=== PATIENT | male | born 1950 | race African-American/Black ===

== ENCOUNTER 2017-07-07 05:40 | Day surgery (SDC) | payer MEDICARE, MEDICAID ==
[2017-07-07 09:14] LABS: #Eosinphils 0.8 thou/uL (0.0-0.7); #Lymphocytes 1.8 thou/uL (1.20-3.40); #Monocytes 0.9 thou/uL (0.11-0.59); #Neutrophils 5.9 thou/uL (1.40-6.50); %Basophils 0.1 % (0.0-1.0); %Eosinophils 8.7 % (0.0-10.0); %Lymphocytes 18.9 % (21.0-51.0); %Monocytes 9.6 % (0.0-10.0); Mean Platelet Volume 9.9 fL (7.4-10.4); Red Blood Cell (RBC) Count 3.62 mill/uL (4.70-6.10); White Blood Cell (WBC) Count 9.5 thou/uL (4.8-10.8)
[2017-07-07 09:21] LABS: PTT 26.8 SEC (22.9-36.1); Prothrombin Time 15.5 SEC (12.0-14.7)
[2017-07-07 09:37] LABS: Anion Gap 10 mmol/L (10-20); BUN (Urea Nitrogen) 12 mg/dL (8.4-25.7); Calc. Creatinine Clearance 0 mL/min (70-130); Calcium 8.9 mg/dL (7.8-10.44); Carbon Dioxide 29 mmol/L (23-31); Chloride 103 mmol/L (98-107); Estimated GFR-MDRD Greater than 90
[2017-07-07] MEDS ORDERED: Fentanyl 100 MCG/2 ML VIAL ONE ×2 (10:16→10:30)
[2017-07-07] MEDS ORDERED: Neomycin-Polymyxin 1 ML AMP ONE (10:28)
[2017-07-07] MEDS ORDERED: Thrombin 5000 UNITS/5 ML VIAL ONE ×2 (10:28→11:18)
[2017-07-07] MEDS ORDERED: Bacitracin Zinc Ointment 30 gm TUBE ONE (10:28)
[2017-07-07] MEDS ORDERED: Lidocaine 1% PF 5 ML VIAL ONE (11:05)
[2017-07-07] MEDS ORDERED: Propofol 200 MG/20 ML VIAL ONE (11:05)
[2017-07-07] MEDS ORDERED: ePHEDrine/0.9% NaCl/PF SYRINGE 50 mg/10 ml ONE (11:05)
[2017-07-07] MEDS ORDERED: Sodium Chloride 0.9% 10 ML ONE (11:18)
--- NOTE | 2017-07-07 13:18 | OP ---
DATE OF PROCEDURE: 07/07/2017 PREOPERATIVE DIAGNOSIS: Right dorsal and palmar hand wounds with Integra, total of 10 x 2 cm with t he sizes combined. POSTOPERATIVE DIAGNOSIS: Right dorsal and palmar hand wounds with Integra, total of 10 x 2 cm with the sizes combined. FINDINGS: A layer of dermis deposited especially on the dorsal tendon to see glistening pinkish to clear without evidence of infection and the previous skin graft showed nearly 100% take around these regions. PROCEDURE PERFORMED: 1. Debridement of wound superficial using the following technique. A. Bethpage blade, tenotomy scissor, hemostat and Adson's. B. Excisional technique. C. Down to, but not violating the fascia and the tendon sheath. D. There is no evidence of infection or necrosis. 2. Split-thickness skin graft harvesting from the thigh coming from lateral right. Using a power d ermatome Ahsan meshed 1:1.5 and thickness 0.20. SURGEON: Roosevelt Love M.D. ANESTHESIA: General LMA technique. INDICATIONS: Staged wound management after 4-1/2 weeks with Integra graft in place and evidence und er the graft of adherence of artificial dermis and skin graft is indicated. DESCRIPTION OF PROCEDURE: He has successful general LMA technique, the limb was prepped and draped. This included the donor site right proximal third thigh. The patient had limb both prepped and dr aped. No tourniquet was applied, we removed all the leo and sutures. The wound was healed at a ll sites previously stapled, sutured and his previous skin grafts have taken without abnormality. W hat was left however, was on the palm side, a radial wound over the distal radius that was approxima tely 4.5 x 2 cm and then on the dorsal side a 5.5 x 2 cm wound on which you could see a glistening l naima from the Integra graft. We harvested the skin graft at the depth 0.2 meshed 1:1.5 and then yola sb thrombin-soaked Gelfoam on the donor site. We then placed this graft and it was adequate enough to cover all the surfaces to include the small 5 mm septal depression of the palmar wound. We then stapled the skin in place, put a bacitracin, Adaptic on this and all the other incisions where the sutures had been removed and then finally bolstered it with 2 mineral oil soaked cotton balls on eit her side. Bulky dressing was applied here along with an Jeremy wrap, and at the donor site the thrombi n-soaked Gelfoam was covered with 4 x 4s, Tegaderm, then 6 inch Jeremy wrap. The patient left the oper ating room without complications.
== END 2017-07-08 14:00 | disposition home or self-care (01) ==
LOC: SDC 05:40
PROVIDERS: ATTEND Orthopaedic Surgery Hand Surgery
PROC: 0HRFX74 Replacement of Right Hand Skin with Autologous Tissue Substitute, Partial Thickness, External Approach (ICD-10-PCS; principal; 2017-07-07)
PROC: 0HBHXZZ Excision of Right Upper Leg Skin, External Approach (ICD-10-PCS; 2017-07-07)
DX: S61.401A Unspecified open wound of right hand, initial encounter (principal); D64.9 Anemia, unspecified; E11.9 Type 2 diabetes mellitus without complications; I10 Essential (primary) hypertension; R53.81 Other malaise; B18.2 Chronic viral hepatitis C; Z79.84 Long term (current) use of oral hypoglycemic drugs; Z79.82 Long term (current) use of aspirin; Z79.899 Other long term (current) drug therapy; Z88.8 Allergy status to other drugs, medicaments and biological substances; Z98.890 Other specified postprocedural states
CPT/HCPCS: 36415; 80048; 85025; 85610; 85730; A4216; J2001; J2704; J3010; J3370; J3490

== ENCOUNTER 2020-09-12 13:06 | Outpatient (CLI) | payer MEDICARE, MEDICAID ==
--- NOTE | 2020-09-12 14:03 | ULT ---
CLINICAL HISTORY: Hypertension. STUDY: Renal ultrasound and renal artery ultrasound COMPARISON: None. TECHNIQUE: Multiplanar grayscale and color Doppler images were obtained in a renal ultrasound. Spectr al analysis of the Doppler waveforms of the aorta and renal arteries were performed. FINDINGS: Right kidney: Echogenicity: Normal. Masses/cysts: None. Hydronephrosis: None. Calcifications: None. Length: 10.5 cm Left kidney: Echogenicity: Normal. Masses/cysts: None. Hydronephrosis: None. Calcifications: None. Length: 10.8 cm Limited visualization of the urinary bladder is unremarkable. Peak systolic velocity in the aorta: 93 cm/s Peak systolic velocity in the right renal artery: 125 cm/s. Right renal artery to aortic ratio: 1.4 Peak systolic velocity in the left renal artery: 93 cm/s. Left renal artery to aortic ratio: 1.0 IMPRESSION: 1. Unremarkable renal ultrasound 2. No evidence of renal artery stenosis
== END 2020-09-12 13:07 | disposition home or self-care (01) ==
LOC: BICULT 13:06
PROVIDERS: ATTEND Internal Medicine Nephrology
DX: I12.9 Hypertensive chronic kidney disease with stage 1 through stage 4 chronic kidney disease, or unspecified chronic kidney disease (principal); N18.30 Chronic kidney disease, stage 3 unspecified
CPT/HCPCS: 76770; 93975

== ENCOUNTER 2020-10-01 18:53 | Emergency (ER) | payer MEDICARE, MEDICAID ==
[2020-10-01 19:26] LABS: #Basophils 0.1 thou/uL (0.0-0.2); #Eosinphils 0.5 thou/uL (0.0-0.7); #Lymphocytes 1.8 thou/uL (1.20-3.40); #Monocytes 0.9 thou/uL (0.11-0.59); #Neutrophils 6.4 thou/uL (1.40-6.50); %Basophils 0.6 % (0.0-1.0); %Eosinophils 4.7 % (0.0-10.0); %Lymphocytes 18.8 % (21.0-51.0); %Monocytes 9.5 % (0.0-10.0); %Neutrophils 66.3 % (42.0-75.0); Hemoglobin 10.4 g/dL (14.0-18.0); Mean Corpuscular HGB CONC 31.2 g/dL (32.0-36.0); Mean Corpuscular Hemoglobin 24.7 pg (27.0-31.0); Mean Corpuscular Volume 79.2 fL (78.0-98.0); Mean Platelet Volume 9.2 fL (7.4-10.4); Platelet Count 238 thou/uL (130-400); RBC Distribution Width 15.8 % (11.5-14.5); Red Blood Cell (RBC) Count 4.19 mill/uL (4.70-6.10); White Blood Cell (WBC) Count 9.6 thou/uL (4.8-10.8)
--- NOTE | 2020-10-01 19:38 | RAD ---
Exam: Chest one view HISTORY:Hypertension. Edema Comparison: 05/16/2017 FINDINGS: Cardiac silhouette: Normal Aorta: Unremarkable Pulmonary vessels: Normal Costophrenic angles: Clear LUNGS: No masses or consolidation. Pneumothorax: None Osseous abnormalities: None IMPRESSION: No acute cardiopulmonary process.
[2020-10-01 19:50] LABS: Chloride 107 mmol/L (98-107); Potassium 3.3 mmol/L (3.5-5.1); Sodium 141 mmol/L (136-145)
[2020-10-01 19:53] LABS: Albumin 2.6 g/dL (3.4-4.8)
[2020-10-01 19:55] LABS: Glucose 139 mg/dL (80-115)
[2020-10-01 19:56] LABS: Globulin 3.3 g/dL (2.4-3.5); Protein, Total 5.9 g/dL (5.8-8.1)
[2020-10-01 19:57] LABS: Anion Gap 14 mmol/L (10-20); Bilirubin, Total 0.3 mg/dL (0.2-1.2); Carbon Dioxide 22 mmol/L (23-31)
[2020-10-01 19:58] LABS: Alkaline Phosphatase 72 U/L (40-110)
[2020-10-01 19:59] LABS: Calc. Creatinine Clearance 0 mL/min (70-130)
[2020-10-01 20:00] LABS: BUN (Urea Nitrogen) 18 mg/dL (8.4-25.7)
[2020-10-01 20:01] LABS: ALT (SGPT) 31 U/L (8-55); AST (SGOT) 31 U/L (5-34)
[2020-10-01] MEDS ORDERED: Potassium Chloride 20 MEQ TAB ONE (20:55)
[2020-10-01] MEDS ORDERED: Lisinopril 20 MG TAB PO SCH (21:00)
[2020-10-01] MEDS ORDERED: Potassium Chloride 20 MEQ TAB PO SCH (21:00)
[2020-10-01] MEDS ORDERED: Amlodipine 10 MG TAB PO SCH (21:00)
[2020-10-01] MEDS ORDERED: Lisinopril 10 MG TAB PO SCH (21:15)
== END 2020-10-01 22:15 | disposition home or self-care (01) ==
LOC: ERS 18:53
DX: I10 Essential (primary) hypertension (principal); E11.9 Type 2 diabetes mellitus without complications; G47.00 Insomnia, unspecified; Z79.899 Other long term (current) drug therapy
CPT/HCPCS: 36415; 71045; 80053; 83880; 84484; 85025; 93005

== ENCOUNTER 2021-01-12 12:37 | Inpatient (IN) | payer MEDICARE, MEDICAID ==
[2021-01-12] MEDS ORDERED: Tranexamic Acid 1,000 MG/10 ML VIAL ONE (12:47)
[2021-01-12] MEDS ORDERED: diphenhydrAMINE 50 MG CAP ONE (13:00)
[2021-01-12] MEDS ORDERED: EPINEPHrine 1 MG/ML AMP ONE (13:00)
[2021-01-12] MEDS ORDERED: predniSONE 20 MG TAB ONE (13:00)
[2021-01-12] MEDS ORDERED: Famotidine/PF 20 mg/2ml Vial ONE (13:00)
[2021-01-12] MEDS ORDERED: diphenhydrAMINE 50 MG/ML VIAL ONE (13:01)
[2021-01-12 13:14] LABS: #Basophils 0.1 thou/uL (0.0-0.2); #Eosinphils 0.1 thou/uL (0.0-0.7); #Lymphocytes 1.2 thou/uL (1.20-3.40); #Monocytes 0.5 thou/uL (0.11-0.59); #Neutrophils 7.5 thou/uL (1.40-6.50); %Eosinophils 1.1 % (0.0-10.0); %Lymphocytes 12.5 % (21.0-51.0); %Neutrophils 80.4 % (42.0-75.0); Hemoglobin 10.7 g/dL (14.0-18.0); Mean Corpuscular HGB CONC 31.2 g/dL (32.0-36.0); Mean Corpuscular Hemoglobin 24.6 pg (27.0-31.0); Mean Corpuscular Volume 78.9 fL (78.0-98.0); Mean Platelet Volume 6.6 fL (7.4-10.4); Platelet Count 260 thou/uL (130-400); RBC Distribution Width 19.1 % (11.5-14.5); Red Blood Cell (RBC) Count 4.36 mill/uL (4.70-6.10); White Blood Cell (WBC) Count 9.3 thou/uL (4.8-10.8)
[2021-01-12 13:39] LABS: ALT (SGPT) 54 U/L (8-55); AST (SGOT) 92 U/L (5-34); Albumin 2.9 g/dL (3.4-4.8); Alkaline Phosphatase 72 U/L (40-110); Anion Gap 15 mmol/L (10-20); BUN (Urea Nitrogen) 22 mg/dL (8.4-25.7); Bilirubin, Total 0.3 mg/dL (0.2-1.2); Calc. Creatinine Clearance 0 mL/min (70-130); Calcium 8.6 mg/dL (7.8-10.44); Carbon Dioxide 21 mmol/L (23-31); Chloride 110 mmol/L (98-107); Globulin 4.2 g/dL (2.4-3.5); Glucose 140 mg/dL (80-115); Potassium 4.1 mmol/L (3.5-5.1); Protein, Total 7.1 g/dL (5.8-8.1); Sodium 142 mmol/L (136-145)
[2021-01-12 14:15] LABS: CKMB 11.9 ng/mL (0-6.6)
[2021-01-12] MEDS ORDERED: Aspirin Chewable 81 MG TAB ONE ×2 (14:32→14:33)
[2021-01-12] MEDS ORDERED: hydrALAZINE 20 MG/ML VIAL ONE (14:58)
[2021-01-12] MEDS ORDERED: Ondansetron ODT 4 MG TAB PO PRN (15:22)
[2021-01-12] MEDS ORDERED: Calcium Carbonate 500 MG ChewTAB PO PRN (15:22)
[2021-01-12] MEDS ORDERED: Dextrose 5% in Water 1,000 ML IV PRN (15:27)
[2021-01-12] MEDS ORDERED: HumaLOG 300 UNITS/3 ML VIAL SC PRN ×2 (15:27)
[2021-01-12] MEDS ORDERED: Dextrose 50% Abboject 50 ML SYRINGE SLOW IVP PRN (15:27)
[2021-01-12] MEDS ORDERED: Enoxaparin Sodium 30 MG/0.3 ML SYRINGE SC SCH ×2 (15:45→16:47)
[2021-01-12] MEDS ORDERED: Furosemide 100 MG/10 ML VIAL SLOW IVP SCH (15:45)
[2021-01-12] MEDS: Acetaminophen 325 MG TAB PO PRN (16:36)
[2021-01-12 17:02] LABS: Troponin I 0.113 ng/mL (< 0.028)
[2021-01-12 17:33] VITALS: BMI 26.2
[2021-01-12 19:15] LABS: Troponin I 0.127 ng/mL (< 0.028)
[2021-01-12] MEDS ORDERED: Carvedilol 6.25 MG TAB PO SCH ×2 (19:45→21:00)
[2021-01-12] MEDS: cloNIDine 0.2 MG TAB PO SCH (20:49)
[2021-01-12] MEDS: NIFEdipine XL 60 MG TAB PO SCH (20:52)
[2021-01-12 21:47] LABS: SARS-CoV-2 PCR by NAA Not Detected (NotDetected)
[2021-01-12 23:08] LABS: HIV (1/2) Antibody/Antigen Non-Reactive (NonReactive); HIV 1/2 INDEX 0.14 S/CO (<1.00)
[2021-01-12] MEDS: Zolpidem Tartrate 5 MG TAB PO SCH (23:39)
[2021-01-13 04:31] LABS: #Basophils 0.1 thou/uL (0.0-0.2); #Lymphocytes 0.9 thou/uL (1.20-3.40); #Monocytes 0.2 thou/uL (0.11-0.59); #Neutrophils 5.8 thou/uL (1.40-6.50); %Basophils 0.7 % (0.0-1.0); %Lymphocytes 13.1 % (21.0-51.0); %Monocytes 3.2 % (0.0-10.0); Hemoglobin 8.4 g/dL (14.0-18.0); Mean Corpuscular HGB CONC 31.3 g/dL (32.0-36.0); Mean Corpuscular Hemoglobin 24.9 pg (27.0-31.0); Mean Corpuscular Volume 79.3 fL (78.0-98.0); Mean Platelet Volume 11.7 fL (7.4-10.4); Platelet Count 192 thou/uL (130-400); RBC Distribution Width 18.8 % (11.5-14.5); Red Blood Cell (RBC) Count 3.36 mill/uL (4.70-6.10); White Blood Cell (WBC) Count 6.9 thou/uL (4.8-10.8)
[2021-01-13 04:37] LABS: INR-International Normal Ratio 1.3; PTT 33.7 sec (22.9-36.1); Prothrombin Time 16.5 sec (12.0-14.7)
[2021-01-13 04:58] LABS: ALT (SGPT) 41 U/L (8-55); AST (SGOT) 54 U/L (5-34); Albumin 2.3 g/dL (3.4-4.8); Alkaline Phosphatase 52 U/L (40-110); Anion Gap 13 mmol/L (10-20); BUN (Urea Nitrogen) 27 mg/dL (8.4-25.7); Bilirubin, Total Less than 0.2 mg/dL (0.2-1.2); Calc. Creatinine Clearance 28 mL/min (70-130); Carbon Dioxide 23 mmol/L (23-31); Cardiac Risk 3.4 (Less than 4.5); Chloride 109 mmol/L (98-107); Cholesterol 151 mg/dl (< 200 Desired); Globulin 2.9 g/dL (2.4-3.5); Glucose 152 mg/dL (80-115); HDL Cholesterol 45 mg/dL (>60 Neg Risk); LDL Cholesterol, Calculated 91 mg/dL; Potassium 3.5 mmol/L (3.5-5.1); Protein, Total 5.2 g/dL (5.8-8.1); Sodium 141 mmol/L (136-145); Triglycerides 75 mg/dL (Less than 150)
[2021-01-13 05:12] LABS: HBSAg Index 0.19 S/CO (0-0.99); Hep B Surf Ag Non-Reactive S/CO (NonReactive)
[2021-01-13 05:13] LABS: Hep C IgG Ab Reflex HepC Qnt (NonReactive)
[2021-01-13] MEDS ORDERED: Enoxaparin Sodium 30 MG/0.3 ML SYRINGE SC SCH (09:00)
[2021-01-13] MEDS ORDERED: Furosemide 100 MG/10 ML VIAL SLOW IVP SCH (09:00)
[2021-01-13] MEDS ORDERED: Enoxaparin Sodium 40 MG/0.4 ML SYRINGE SC SCH (09:00)
[2021-01-13] MEDS: NIFEdipine XL 60 MG TAB PO SCH ×2 (09:11→20:12)
[2021-01-13] MEDS: cloNIDine 0.2 MG TAB PO SCH ×2 (09:11→20:12)
[2021-01-13] MEDS: Enoxaparin Sodium 30 MG/0.3 ML SYRINGE SC SCH (09:11)
[2021-01-13] MEDS: Carvedilol 6.25 MG TAB PO SCH ×2 (09:12→18:31)
[2021-01-13] MEDS ORDERED: Non-Formulary Item 1 EACH (Zolpidem Tartrate [Ambien] 10 MG Tablet) PO PRN (11:31)
[2021-01-13 14:54] LABS: Bacteria/HPF None Seen HPF (None Seen); Bilirubin Negative (Negative); Blood, Urine 2+ (Negative); Clarity Turbid (Clear); Glucose, Urine (Dipstick) Greater than 1000 mg/dL (Negative); Ketone, Urine Negative (Negative); Leukocyte Negative Leu/uL (Negative); Nitrite Negative (Negative); Protein, Urine (Dipstick) 600 mg/dL (Neg-Trace); Specific Gravity, Urine 1.017 (1.002-1.036); Urobilinogen Normal mg/dL (Less than 2)
[2021-01-13 14:55] LABS: Squamous Epithelial 0-3 HPF (0-3); WBC/HPF None Seen HPF (0-3)
[2021-01-13 15:15] LABS: Creatinine, Urine 131.06 mg/dL (63-166)
[2021-01-13 15:16] LABS: Creatinine, Urine 127.5 mg/dL (63-166)
[2021-01-13] MEDS: Acetaminophen 325 MG TAB PO PRN (20:12)
[2021-01-13] MEDS: Zolpidem Tartrate 5 MG TAB PO SCH (22:06)
[2021-01-14 05:02] LABS: #Basophils 0.1 thou/uL (0.0-0.2); #Eosinphils 0.1 thou/uL (0.0-0.7); #Lymphocytes 2.3 thou/uL (1.20-3.40); #Monocytes 0.9 thou/uL (0.11-0.59); #Neutrophils 6.1 thou/uL (1.40-6.50); %Basophils 0.7 % (0.0-1.0); %Eosinophils 1.1 % (0.0-10.0); %Lymphocytes 24.4 % (21.0-51.0); %Monocytes 9.3 % (0.0-10.0); %Neutrophils 64.5 % (42.0-75.0); Hemoglobin 8.5 g/dL (14.0-18.0); Mean Corpuscular HGB CONC 31.5 g/dL (32.0-36.0); Mean Corpuscular Hemoglobin 24.9 pg (27.0-31.0); Mean Corpuscular Volume 79.1 fL (78.0-98.0); Mean Platelet Volume 11.4 fL (7.4-10.4); Platelet Count 221 thou/uL (130-400); RBC Distribution Width 18.5 % (11.5-14.5); Red Blood Cell (RBC) Count 3.41 mill/uL (4.70-6.10); White Blood Cell (WBC) Count 9.5 thou/uL (4.8-10.8)
[2021-01-14 05:21] LABS: Iron 24 ug/dL (65-175); Iron Binding Capacity, Total 149 mcg/dL (261-462)
[2021-01-14 05:22] LABS: ALT (SGPT) 50 U/L (8-55); AST (SGOT) 65 U/L (5-34); Albumin 2.2 g/dL (3.4-4.8); Alkaline Phosphatase 48 U/L (40-110); Anion Gap 11 mmol/L (10-20); BUN (Urea Nitrogen) 38 mg/dL (8.4-25.7); Bilirubin, Total 0.2 mg/dL (0.2-1.2); Calc. Creatinine Clearance 23 mL/min (70-130); Calcium 7.9 mg/dL (7.8-10.44); Carbon Dioxide 23 mmol/L (23-31); Chloride 105 mmol/L (98-107); Globulin 2.9 g/dL (2.4-3.5); Glucose 117 mg/dL (80-115); Potassium 3.3 mmol/L (3.5-5.1); Protein, Total 5.1 g/dL (5.8-8.1); Sodium 136 mmol/L (136-145)
[2021-01-14 07:32] VITALS: TEMP 98.6
[2021-01-14] MEDS ORDERED: Lantus 1000 UNITS/10 ML VIAL SC SCH (09:00)
[2021-01-14] MEDS: cloNIDine 0.2 MG TAB PO SCH (09:20)
[2021-01-14] MEDS: Enoxaparin Sodium 30 MG/0.3 ML SYRINGE SC SCH (09:20)
[2021-01-14] MEDS: NIFEdipine XL 60 MG TAB PO SCH (09:20)
[2021-01-14] MEDS: Carvedilol 6.25 MG TAB PO SCH (09:21)
[2021-01-14 12:22] VITALS: BP 128/65
[2021-01-14 13:59] LABS: ANA Symphony (Qualitative) Negative (Negative); ANA Symphony (Quantitative) 0.2 Ratio (< 0.7 Negative); dsDNA IgG Antibody 0.6 IU/mL (<10 Negative)
[2021-01-14 14:29] LABS: EliA Vaculitis New Method **** NEW METHOD ****; Glomerular Basemt Membrane Ab Less than 1.9 EliAU/mL (<7 Negative)
[2021-01-14 14:37] LABS: Kappa Lambda Light Chain Ratio 2.11 (0.26-1.65); Kappa Light Chains 91.6 mg/L (3.3-19.4); Lambda Light Chain 43.4 mg/L (5.7-26.3)
[2021-01-15 10:38] LABS: A/G Ratio 0.9 (0.7-1.7); Albumin 2.3 g/dL (2.9-4.4); Alpha 1 0.2 g/dL (0.0-0.4); Alpha 2 0.8 g/dL (0.4-1.0); Beta 0.7 g/dL (0.7-1.3); Gamma 0.8 g/dL (0.4-1.8); Globulin, Total 2.5 g/dL (2.2-3.9); M-Spike Not Observed g/dL (Not Observed); Protein Electrophoresis Intrp Note: (.)
[2021-01-15 12:15] LABS: HCV log10 6.611 (.); Hep C PCR-Quant 4080000 IU/mL (.)
[2021-01-15 15:15] LABS: Cytoplasmic (C-ANCA) <1:20 titer (Neg:<1:20); Myeloperoxidase AutoAbs <9.0 U/mL (0.0-9.0); Perinuclear (P-ANCA) <1:20 titer (Neg:<1:20); Proteinase-3 AutoAbs Less than 3.5 U/mL (0.0-3.5)
[2021-01-16 13:37] LABS: Albumin-Ur 52.9 % (.); Alpha 1 - Ur 1.8 % (.); Alpha 2 - Ur 9.3 % (.); Beta-Ur 16.6 % (.); Gamma-Ur 19.3 % (.); M-Spike,% Not Observed % (Not Observed); Protein, Urine 1215.3 mg/dL (Not Estab.)
== END 2021-01-14 15:15 | disposition home or self-care (01) | DRG 682 ==
LOC: ERS 12:37 → 2NO 14:46
PROVIDERS: ADMIT Student in an Organized Health Care Education/Training Program; ATTEND Student in an Organized Health Care Education/Training Program
DX: N17.9 Acute kidney failure, unspecified (principal); I50.31 Acute diastolic (congestive) heart failure; I13.0 Hypertensive heart and chronic kidney disease with heart failure and stage 1 through stage 4 chronic kidney disease, or unspecified chronic kidney disease; Z20.822 Contact with and (suspected) exposure to COVID-19; R77.8 Other specified abnormalities of plasma proteins; E11.22 Type 2 diabetes mellitus with diabetic chronic kidney disease; I16.0 Hypertensive urgency; D63.1 Anemia in chronic kidney disease; E78.5 Hyperlipidemia, unspecified; B19.20 Unspecified viral hepatitis C without hepatic coma; N52.9 Male erectile dysfunction, unspecified; R01.0 Benign and innocent cardiac murmurs; N18.4 Chronic kidney disease, stage 4 (severe); E88.09 Other disorders of plasma-protein metabolism, not elsewhere classified; Z79.899 Other long term (current) drug therapy; Z88.8 Allergy status to other drugs, medicaments and biological substances; Z79.84 Long term (current) use of oral hypoglycemic drugs; Z79.82 Long term (current) use of aspirin; Z91.14 Patient's other noncompliance with medication regimen
CPT/HCPCS: 36415; 36416; 71045; 80053; 80061; 81001; 82553; 82570; 82607; 82728; 82746; 83516; 83520; 83540; 83550; 83880; 83883; 84156; 84165; 84166; 84484; 84540; 85025; 85610; 85730; 86038; 86225; 86256; 86803; 87340; 87389; 87522; 87635; 93005; 93010; 93306; 96372; 96374; 96375; J0171; J0360; J1200; J1650; J1815; J1940; J7512; Q0162; S0028; U0003; U0005

== ENCOUNTER 2021-01-24 08:50 | Day surgery (SDC) | payer MEDICARE, MEDICAID ==
[2021-01-17 14:00] VITALS: BMI 25.9
[2021-01-24 11:31] VITALS: BP 164/96; TEMP 98.4
== END 2021-01-24 13:10 | disposition home or self-care (01) ==
LOC: CT 08:50
PROVIDERS: ATTEND Internal Medicine Nephrology
PROC: 0T913ZX Drainage of Left Kidney, Percutaneous Approach, Diagnostic (ICD-10-PCS; principal; 2021-01-24)
DX: I12.9 Hypertensive chronic kidney disease with stage 1 through stage 4 chronic kidney disease, or unspecified chronic kidney disease (principal); E11.22 Type 2 diabetes mellitus with diabetic chronic kidney disease; E11.40 Type 2 diabetes mellitus with diabetic neuropathy, unspecified; N18.30 Chronic kidney disease, stage 3 unspecified; R80.9 Proteinuria, unspecified; M10.9 Gout, unspecified; M19.90 Unspecified osteoarthritis, unspecified site; D64.9 Anemia, unspecified; Z79.4 Long term (current) use of insulin; Z79.899 Other long term (current) drug therapy; Z88.8 Allergy status to other drugs, medicaments and biological substances
CPT/HCPCS: 50200; 77012; 88305; 88313; 88329; 88346; 88348; 88350

== ENCOUNTER 2021-01-31 11:29 | Emergency (ER) | payer MEDICARE, MEDICAID ==
[2021-01-31 12:18] LABS: #Basophils 0.1 thou/uL (0.0-0.2); #Eosinphils 0.4 thou/uL (0.0-0.7); #Lymphocytes 1.8 thou/uL (1.20-3.40); #Monocytes 0.6 thou/uL (0.11-0.59); #Neutrophils 5.1 thou/uL (1.40-6.50); %Basophils 0.8 % (0.0-1.0); %Lymphocytes 22.8 % (21.0-51.0); %Monocytes 7.7 % (0.0-10.0); %Neutrophils 63.7 % (42.0-75.0); Hemoglobin 9.4 g/dL (14.0-18.0); Mean Corpuscular HGB CONC 30.7 g/dL (32.0-36.0); Mean Corpuscular Hemoglobin 24.2 pg (27.0-31.0); Mean Corpuscular Volume 78.7 fL (78.0-98.0); Platelet Count 304 thou/uL (130-400); RBC Distribution Width 17.6 % (11.5-14.5)
[2021-01-31 12:44] LABS: ALT (SGPT) 38 U/L (8-55); AST (SGOT) 32 U/L (5-34); Albumin 2.8 g/dL (3.4-4.8); Alkaline Phosphatase 95 U/L (40-110); Anion Gap 14 mmol/L (10-20); BUN (Urea Nitrogen) 36 mg/dL (8.4-25.7); Bilirubin, Total 0.2 mg/dL (0.2-1.2); Calc. Creatinine Clearance 0 mL/min (70-130); Calcium 8.4 mg/dL (7.8-10.44); Carbon Dioxide 26 mmol/L (23-31); Chloride 106 mmol/L (98-107); Globulin 3.8 g/dL (2.4-3.5); Glucose 135 mg/dL (80-115); Potassium 3.7 mmol/L (3.5-5.1); Protein, Total 6.6 g/dL (5.8-8.1); Sodium 142 mmol/L (136-145)
[2021-01-31 13:12] LABS: Bilirubin Negative (Negative); Blood, Urine Trace (Negative); Clarity Clear (Clear); Glucose, Urine (Dipstick) 100 mg/dL (Negative); Ketone, Urine Negative (Negative); Leukocyte Negative Leu/uL (Negative); Nitrite Negative (Negative); Protein, Urine (Dipstick) 300 mg/dL (Neg-Trace); Specific Gravity, Urine 1.012 (1.002-1.036); Squamous Epithelial 0-3 HPF (0-3); Urobilinogen Normal mg/dL (Less than 2); WBC/HPF 0-3 HPF (0-3); pH, Urine 5.5 (5.0-9.0)
[2021-01-31 13:13] LABS: Bacteria/HPF Rare-Few HPF (None Seen)
== END 2021-01-31 13:58 | disposition home or self-care (01) ==
LOC: ERS 11:29
DX: N17.9 Acute kidney failure, unspecified (principal); R33.9 Retention of urine, unspecified; E11.9 Type 2 diabetes mellitus without complications; I10 Essential (primary) hypertension; Z79.899 Other long term (current) drug therapy; Z79.82 Long term (current) use of aspirin
CPT/HCPCS: 36415; 51702; 80053; 81003; 81015; 85025; 87086

== ENCOUNTER 2021-04-17 04:35 | Emergency (ER) | payer MEDICARE, MEDICAID | END 2021-04-17 06:26 | disposition home or self-care (01) | LOC: ERS 04:35 | DX: R60.0 Localized edema (principal); I10 Essential (primary) hypertension | CPT/HCPCS: 51701 ==

== ENCOUNTER 2021-06-09 02:26 | Emergency (ER) | payer MEDICARE, MEDICAID ==
[2021-06-09 03:28] LABS: #Basophils 0.1 thou/uL (0.0-0.2); #Eosinphils 0.2 thou/uL (0.0-0.7); #Lymphocytes 0.9 thou/uL (1.20-3.40); #Monocytes 0.7 thou/uL (0.11-0.59); #Neutrophils 8.2 thou/uL (1.40-6.50); %Basophils 0.8 % (0.0-1.0); %Eosinophils 2.1 % (0.0-10.0); %Lymphocytes 8.6 % (21.0-51.0); %Neutrophils 81.5 % (42.0-75.0); Mean Corpuscular HGB CONC 31.1 g/dL (32.0-36.0); Mean Corpuscular Hemoglobin 25.4 pg (27.0-31.0); Mean Corpuscular Volume 81.7 fL (78.0-98.0); Mean Platelet Volume 9.8 fL (7.4-10.4); Platelet Count 271 thou/uL (130-400); RBC Distribution Width 19.6 % (11.5-14.5); Red Blood Cell (RBC) Count 3.54 mill/uL (4.70-6.10); White Blood Cell (WBC) Count 10.1 thou/uL (4.8-10.8)
[2021-06-09 03:51] LABS: ALT (SGPT) 33 U/L (8-55); AST (SGOT) 31 U/L (5-34); Albumin 2.7 g/dL (3.4-4.8); Alkaline Phosphatase 85 U/L (40-110); Anion Gap 10 mmol/L (10-20); BUN (Urea Nitrogen) 27 mg/dL (8.4-25.7); Bilirubin, Total 0.2 mg/dL (0.2-1.2); Calc. Creatinine Clearance 0 mL/min (70-130); Calcium 8.5 mg/dL (7.8-10.44); Carbon Dioxide 32 mmol/L (23-31); Chloride 101 mmol/L (98-107); Globulin 3.7 g/dL (2.4-3.5); Glucose 159 mg/dL (80-115); Lipase 58 U/L (8-78); Potassium 3.9 mmol/L (3.5-5.1); Protein, Total 6.4 g/dL (5.8-8.1); Sodium 139 mmol/L (136-145)
[2021-06-09 05:49] LABS: Bacteria/HPF 4+ HPF (None Seen); Bilirubin Negative (Negative); Blood, Urine 1+ (Negative); Clarity Turbid (Clear); Glucose, Urine (Dipstick) 70 mg/dL (Negative); Ketone, Urine Trace mg/dL (Negative); Leukocyte 75 Leu/uL (Negative); Nitrite Negative (Negative); Protein, Urine (Dipstick) 600 mg/dL (Neg-Trace); RBC/HPF 0-3 HPF (0-3); Specific Gravity, Urine 1.021 (1.002-1.036); Squamous Epithelial 0-3 HPF (0-3); Urobilinogen Normal mg/dL (Less than 2); WBC/HPF 21-50 HPF (0-3); pH, Urine 6.5 (5.0-9.0)
[2021-06-09] MEDS ORDERED: cloNIDine 0.1 MG TAB ONE ×2 (08:50)
[2021-06-09] MEDS ORDERED: Iopamidol-370 76% 500 ML 1 ML ONE (11:36)
== END 2021-06-09 09:02 ==
LOC: ERS 02:26
DX: N39.0 Urinary tract infection, site not specified (principal); K59.00 Constipation, unspecified; I13.2 Hypertensive heart and chronic kidney disease with heart failure and with stage 5 chronic kidney disease, or end stage renal disease; E11.22 Type 2 diabetes mellitus with diabetic chronic kidney disease; N18.6 End stage renal disease; I50.9 Heart failure, unspecified; D63.1 Anemia in chronic kidney disease; E03.9 Hypothyroidism, unspecified; Z79.899 Other long term (current) drug therapy
CPT/HCPCS: 36415; 51701; 74177; 80053; 81003; 81015; 83690; 85025; 93005; Q9967

== ENCOUNTER 2021-06-23 09:12 | Inpatient (IN) | payer MEDICARE, MEDICAID ==
[2021-06-23] MEDS ORDERED: niCARdipine 20MG In NaCl 20 MG/200 ML BAG ONE ×4 (09:42→22:25)
[2021-06-23] MEDS ORDERED: Ondansetron PF 4 MG/2 ML Vial ONE (09:42)
[2021-06-23] MEDS ORDERED: Heparin 10,000 UNITS/ 10 ML VIAL ONE (09:42)
[2021-06-23] MEDS ORDERED: Nitroglycerin 2% Ointment 1 INCH/1 GM Packet ONE (09:55)
[2021-06-23] MEDS ORDERED: Furosemide 100 MG/10 ML VIAL ONE (09:55)
[2021-06-23] MEDS ORDERED: Insulin Regular 300 UNITS/3 ML VIAL ONE (09:56)
[2021-06-23] MEDS ORDERED: Dextrose 50% Abboject 50 ML SYRINGE ONE (09:56)
[2021-06-23] MEDS ORDERED: Calcium Chloride 1 GM/10 ML Abboject SYRINGE ONE (09:56)
[2021-06-23 10:02] LABS: Phosphorus 3.9 mg/dL (2.3-4.7)
[2021-06-23 10:03] LABS: Hemoglobin 9.1 g/dL (14.0-18.0); Mean Corpuscular Hemoglobin 24.9 pg (27.0-31.0); Mean Corpuscular Volume 83.4 fL (78.0-98.0); Red Blood Cell (RBC) Count 3.63 mill/uL (4.70-6.10); White Blood Cell (WBC) Count 10.5 thou/uL (4.8-10.8)
[2021-06-23 10:06] LABS: ALT (SGPT) 39 U/L (8-55); AST (SGOT) 44 U/L (5-34); Alkaline Phosphatase 148 U/L (40-110); Anion Gap 12 mmol/L (10-20); BUN (Urea Nitrogen) 29 mg/dL (8.4-25.7); Bilirubin, Total 0.2 mg/dL (0.2-1.2); Calc. Creatinine Clearance 0 mL/min (70-130); Calcium 8.6 mg/dL (7.8-10.44); Carbon Dioxide 31 mmol/L (23-31); Chloride 103 mmol/L (98-107); Globulin 4.3 g/dL (2.4-3.5); Glucose 145 mg/dL (80-115); Magnesium 2.1 mg/dL (1.6-2.6); Potassium 3.7 mmol/L (3.5-5.1); Protein, Total 7.3 g/dL (5.8-8.1); Sodium 142 mmol/L (136-145)
[2021-06-23 10:51] LABS: #Basophils 0.1 thou/uL (0.0-0.2); #Eosinphils 0.3 thou/uL (0.0-0.7); #Lymphocytes 0.9 thou/uL (1.20-3.40); #Monocytes 1.1 thou/uL (0.11-0.59); #Neutrophils 8.2 thou/uL (1.40-6.50); %Basophils 0.6 % (0.0-1.0); %Eosinophils 2.6 % (0.0-10.0); %Lymphocytes 8.4 % (21.0-51.0); %Monocytes 10.2 % (0.0-10.0); %Neutrophils 78.1 % (42.0-75.0); Anisocytosis MODERATE=16-30 cells (100X) (0-5/hpf); Band 33 % (5-11); Eosinophils 1 % (0-10); Hypochromia SLIGHT = 6-15 cells (100X) (0-5/hpf); Lymphocytes 10 % (21-51); MDiff Complete? YES; Mean Corpuscular HGB CONC 29.9 g/dL (32.0-36.0); Mean Platelet Volume 10.1 fL (7.4-10.4); Neutrophil 56 % (42-75); Platelet Count 241 thou/uL (130-400); Poikilocytosis MODERATE=16-30 cells (100X) (0-5/hpf); RBC Distribution Width 19.1 % (11.5-14.5)
[2021-06-23] MEDS ORDERED: Dextrose 50% Abboject 50 ML SYRINGE SLOW IVP PRN (12:54)
[2021-06-23] MEDS ORDERED: HumaLOG 300 UNITS/3 ML VIAL SC PRN ×2 (12:54)
[2021-06-23] MEDS ORDERED: Acetaminophen 325 MG TAB PO PRN (12:54)
[2021-06-23] MEDS ORDERED: Ondansetron ODT 4 MG TAB PO PRN (12:54)
[2021-06-23] MEDS ORDERED: Dextrose 5% in Water 1,000 ML IV PRN (12:54)
[2021-06-23] MEDS ORDERED: Melatonin 3 MG TAB PO PRN (13:15)
[2021-06-23] MEDS ORDERED: Simethicone Chewable 80 MG TAB PO PRN (13:15)
[2021-06-23] MEDS ORDERED: Zolpidem Tartrate 5 MG TAB PO PRN (13:18)
[2021-06-23 14:44] LABS: HBSAB Concentration Less than 8.00 mIU/mL; HBSAg Index 0.48 S/CO (0-0.99); Hep B Surf AB Non-Reactive (NonReactive); Hep B Surf Ag Non-Reactive S/CO (NonReactive)
[2021-06-23] MEDS: Heparin 5,000 UNITS/ML VIAL SC SCH ×2 (15:00→21:24)
[2021-06-23] MEDS: niCARdipine 25 MG in Sodium Chloride 0.9% 250 ML 250 ML IVPB SCH ×2 (20:35→22:27)
[2021-06-23 21:47] LABS: SARS-CoV-2 NAA Rapid Test Not Detected (NotDetected)
[2021-06-23] MEDS: niCARdipine 50 MG in Sodium Chloride 0.9% 250 ML 230 ML IVPB SCH (23:38)
[2021-06-24] MEDS ORDERED: Zolpidem Tartrate 5 MG TAB PO PRN (00:48)
[2021-06-24] MEDS: niCARdipine 50 MG in Sodium Chloride 0.9% 250 ML 230 ML IVPB SCH (03:37)
[2021-06-24 04:38] LABS: #Eosinphils 0.2 thou/uL (0.0-0.7); #Lymphocytes 1.1 thou/uL (1.20-3.40); #Monocytes 0.8 thou/uL (0.11-0.59); #Neutrophils 5.9 thou/uL (1.40-6.50); %Basophils 0.5 % (0.0-1.0); %Eosinophils 2.5 % (0.0-10.0); %Lymphocytes 13.4 % (21.0-51.0); %Monocytes 10.2 % (0.0-10.0); %Neutrophils 73.4 % (42.0-75.0); ALT (SGPT) 36 U/L (8-55); AST (SGOT) 36 U/L (5-34); Albumin 2.8 g/dL (3.4-4.8); Alkaline Phosphatase 105 U/L (40-110); Anion Gap 12 mmol/L (10-20); BUN (Urea Nitrogen) 19 mg/dL (8.4-25.7); Bilirubin, Total 0.3 mg/dL (0.2-1.2); Calc. Creatinine Clearance 39 mL/min (70-130); Calcium 8.6 mg/dL (7.8-10.44); Carbon Dioxide 29 mmol/L (23-31); Chloride 102 mmol/L (98-107); Globulin 3.8 g/dL (2.4-3.5); Glucose 95 mg/dL (80-115); Hemoglobin 8.7 g/dL (14.0-18.0); Mean Corpuscular Volume 83.3 fL (78.0-98.0); Mean Platelet Volume 10.9 fL (7.4-10.4); Platelet Count 195 thou/uL (130-400); Potassium 4.2 mmol/L (3.5-5.1); Protein, Total 6.6 g/dL (5.8-8.1); RBC Distribution Width 19.3 % (11.5-14.5); Red Blood Cell (RBC) Count 3.48 mill/uL (4.70-6.10); Sodium 139 mmol/L (136-145)
[2021-06-24] MEDS ORDERED: diphenhydrAMINE 25 MG CAP PO PRN (06:42)
[2021-06-24] MEDS: Levothyroxine Sodium 50 MCG TAB PO SCH (08:44)
[2021-06-24] MEDS ORDERED: hydrALAZINE 10 MG TAB PO SCH (09:00)
[2021-06-24] MEDS: Heparin 5,000 UNITS/ML VIAL SC SCH ×3 (09:06→20:37)
[2021-06-24] MEDS: Folic Acid 1 MG TAB PO SCH (09:07)
[2021-06-24] MEDS: cloNIDine 0.2 MG TAB PO SCH ×3 (09:07→20:36)
[2021-06-24] MEDS: Tamsulosin HCl 0.4 MG CAP PO SCH (09:07)
[2021-06-24] MEDS: NIFEdipine XL 60 MG TAB PO SCH ×2 (09:07→20:37)
[2021-06-24] MEDS ORDERED: Carvedilol 6.25 MG TAB PO SCH (09:30)
[2021-06-24] MEDS ORDERED: hydrALAZINE 20 MG/ML VIAL SLOW IVP PRN (11:44)
[2021-06-24 11:51] VITALS: BMI 24.4
[2021-06-24] MEDS ORDERED: EPOETIN ALFA-EPBX (ESRD) 10,000 UNIT/ML VIAL IVP SCH (14:00)
[2021-06-24] MEDS: hydrALAZINE 25 MG TAB PO SCH ×2 (14:07→20:36)
[2021-06-24] MEDS: Carvedilol 25 MG TAB PO SCH (17:29)
[2021-06-24] MEDS ORDERED: traZODone HCl 50 MG TAB PO SCH (22:15)
[2021-06-25] MEDS: Levothyroxine Sodium 50 MCG TAB PO SCH (05:05)
[2021-06-25 05:32] LABS: ALT (SGPT) 30 U/L (8-55); AST (SGOT) 26 U/L (5-34); Albumin 2.8 g/dL (3.4-4.8); Alkaline Phosphatase 85 U/L (40-110); Anion Gap 10 mmol/L (10-20); BUN (Urea Nitrogen) 36 mg/dL (8.4-25.7); Bilirubin, Total 0.3 mg/dL (0.2-1.2); Calc. Creatinine Clearance 25 mL/min (70-130); Calcium 8.7 mg/dL (7.8-10.44); Carbon Dioxide 31 mmol/L (23-31); Chloride 101 mmol/L (98-107); Globulin 3.7 g/dL (2.4-3.5); Glucose 93 mg/dL (80-115); Potassium 4.6 mmol/L (3.5-5.1); Protein, Total 6.5 g/dL (5.8-8.1); Sodium 137 mmol/L (136-145)
[2021-06-25] MEDS ORDERED: EPOETIN ALFA-EPBX (ESRD) 10,000 UNIT/ML VIAL IVP SCH (10:00)
[2021-06-25 12:08] LABS: #Eosinphils 0.4 thou/uL (0.0-0.7); #Lymphocytes 1.4 thou/uL (1.20-3.40); #Neutrophils 4.3 thou/uL (1.40-6.50); %Eosinophils 5.1 % (0.0-10.0); %Lymphocytes 20.5 % (21.0-51.0); %Monocytes 13.5 % (0.0-10.0); Mean Corpuscular HGB CONC 30.9 g/dL (32.0-36.0); Mean Corpuscular Hemoglobin 25.2 pg (27.0-31.0); Mean Corpuscular Volume 81.6 fL (78.0-98.0); Platelet Count 218 thou/uL (130-400); RBC Distribution Width 19.7 % (11.5-14.5); Red Blood Cell (RBC) Count 3.19 mill/uL (4.70-6.10)
[2021-06-25] MEDS: Heparin 5,000 UNITS/ML VIAL SC SCH ×3 (14:06→22:09)
[2021-06-25] MEDS: cloNIDine 0.2 MG TAB PO SCH ×3 (14:07→22:07)
[2021-06-25] MEDS: NIFEdipine XL 60 MG TAB PO SCH ×2 (14:07→22:08)
[2021-06-25] MEDS: Tamsulosin HCl 0.4 MG CAP PO SCH (14:07)
[2021-06-25] MEDS: Carvedilol 25 MG TAB PO SCH ×2 (14:07→18:07)
[2021-06-25] MEDS: hydrALAZINE 25 MG TAB PO SCH ×3 (14:08→22:09)
[2021-06-25] MEDS: Folic Acid 1 MG TAB PO SCH (14:08)
[2021-06-25] MEDS ORDERED: Heparin 10,000 UNITS/ 10 ML VIAL ONE (14:54)
[2021-06-25 22:13] LABS: Bacteria/HPF 4+ HPF (None Seen); Bilirubin Negative (Negative); Blood, Urine 2+ (Negative); Clarity Extra Turbid (Clear); Glucose, Urine (Dipstick) Normal (Negative); Ketone, Urine Negative (Negative); Leukocyte 500 Leu/uL (Negative); Nitrite Negative (Negative); Protein, Urine (Dipstick) 300 mg/dL (Neg-Trace); RBC/HPF Greater than 50 HPF (0-3); Specific Gravity, Urine 1.008 (1.002-1.036); Squamous Epithelial None Seen HPF (0-3); Urobilinogen Normal mg/dL (Less than 2); WBC/HPF Greater than 50 HPF (0-3)
[2021-06-26 05:07] LABS: #Eosinphils 0.3 thou/uL (0.0-0.7); #Lymphocytes 1.4 thou/uL (1.20-3.40); #Monocytes 0.9 thou/uL (0.11-0.59); #Neutrophils 3.4 thou/uL (1.40-6.50); %Basophils 0.2 % (0.0-1.0); %Eosinophils 4.6 % (0.0-10.0); %Lymphocytes 24.1 % (21.0-51.0); %Monocytes 14.3 % (0.0-10.0); %Neutrophils 56.9 % (42.0-75.0); Hemoglobin 8.1 g/dL (14.0-18.0); Mean Corpuscular HGB CONC 30.7 g/dL (32.0-36.0); Mean Corpuscular Hemoglobin 25.1 pg (27.0-31.0); Mean Corpuscular Volume 81.8 fL (78.0-98.0); Mean Platelet Volume 10.8 fL (7.4-10.4); Platelet Count 199 thou/uL (130-400); RBC Distribution Width 20.1 % (11.5-14.5); Red Blood Cell (RBC) Count 3.22 mill/uL (4.70-6.10)
[2021-06-26 05:33] LABS: Anion Gap 11 mmol/L (10-20); BUN (Urea Nitrogen) 23 mg/dL (8.4-25.7); Calc. Creatinine Clearance 32 mL/min (70-130); Calcium 8.3 mg/dL (7.8-10.44); Carbon Dioxide 31 mmol/L (23-31); Chloride 101 mmol/L (98-107); Glucose 109 mg/dL (80-115); Sodium 139 mmol/L (136-145)
[2021-06-26] MEDS: Levothyroxine Sodium 50 MCG TAB PO SCH (05:52)
[2021-06-26] MEDS: Carvedilol 25 MG TAB PO SCH ×2 (08:28→17:11)
[2021-06-26] MEDS: cloNIDine 0.2 MG TAB PO SCH (08:29)
[2021-06-26] MEDS: Tamsulosin HCl 0.4 MG CAP PO SCH (08:30)
[2021-06-26] MEDS: Folic Acid 1 MG TAB PO SCH (08:30)
[2021-06-26] MEDS: hydrALAZINE 25 MG TAB PO SCH ×2 (08:31→15:10)
[2021-06-26] MEDS: NIFEdipine XL 60 MG TAB PO SCH (08:32)
[2021-06-26] MEDS: Heparin 5,000 UNITS/ML VIAL SC SCH ×2 (08:32→15:10)
[2021-06-26] MEDS ORDERED: cloNIDine 0.3 MG TAB PO SCH (15:00)
[2021-06-26 15:11] VITALS: BP 170/77
[2021-06-26 15:38] VITALS: TEMP 97.6
== END 2021-06-26 17:22 | disposition home or self-care (01) | DRG 291 ==
LOC: ERS 09:12 → ERHOLD 11:16 → CCU 22:50 → 2NO 06-24 16:58
PROVIDERS: ADMIT Family Medicine; ATTEND Family Medicine
PROC: 5A1D70Z Performance of Urinary Filtration, Intermittent, Less than 6 Hours Per Day (ICD-10-PCS; principal; 2021-06-23)
DX: I13.2 Hypertensive heart and chronic kidney disease with heart failure and with stage 5 chronic kidney disease, or end stage renal disease (principal); N18.6 End stage renal disease; Z20.822 Contact with and (suspected) exposure to COVID-19; I50.33 Acute on chronic diastolic (congestive) heart failure; J96.01 Acute respiratory failure with hypoxia; I16.1 Hypertensive emergency; E11.22 Type 2 diabetes mellitus with diabetic chronic kidney disease; D63.1 Anemia in chronic kidney disease; E03.9 Hypothyroidism, unspecified; G47.00 Insomnia, unspecified; N40.0 Benign prostatic hyperplasia without lower urinary tract symptoms; B19.20 Unspecified viral hepatitis C without hepatic coma; E78.5 Hyperlipidemia, unspecified; Z91.19 Patient's noncompliance with other medical treatment and regimen; Z99.2 Dependence on renal dialysis; Z88.8 Allergy status to other drugs, medicaments and biological substances; Z79.890 Hormone replacement therapy; Z79.899 Other long term (current) drug therapy; Z82.49 Family history of ischemic heart disease and other diseases of the circulatory system
CPT/HCPCS: 36415; 36416; 71045; 80048; 80053; 81001; 82575; 83735; 83880; 84100; 84484; 85025; 86706; 87340; 90935; 93005; G0257; J0360; J1644; J1815; J1940; J2405; J7050; Q0163; Q5105; U0002

== ENCOUNTER 2021-06-28 11:32 | Emergency (ER) | payer MEDICARE, MEDICAID ==
[2021-06-28 12:29] LABS: #Eosinphils 0.2 thou/uL (0.0-0.7); #Lymphocytes 0.8 thou/uL (1.20-3.40); #Monocytes 0.7 thou/uL (0.11-0.59); #Neutrophils 5.6 thou/uL (1.40-6.50); %Basophils 0.4 % (0.0-1.0); %Eosinophils 2.9 % (0.0-10.0); %Lymphocytes 11.3 % (21.0-51.0); %Monocytes 9.8 % (0.0-10.0); %Neutrophils 75.6 % (42.0-75.0); Hemoglobin 8.8 g/dL (14.0-18.0); Mean Corpuscular HGB CONC 30.7 g/dL (32.0-36.0); Mean Corpuscular Hemoglobin 24.8 pg (27.0-31.0); Mean Corpuscular Volume 80.9 fL (78.0-98.0); Mean Platelet Volume 9.5 fL (7.4-10.4); Platelet Count 245 thou/uL (130-400); RBC Distribution Width 19.8 % (11.5-14.5); Red Blood Cell (RBC) Count 3.54 mill/uL (4.70-6.10); White Blood Cell (WBC) Count 7.4 thou/uL (4.8-10.8)
[2021-06-28 12:51] LABS: ALT (SGPT) 29 U/L (8-55); AST (SGOT) 28 U/L (5-34); Albumin 2.9 g/dL (3.4-4.8); Alkaline Phosphatase 89 U/L (40-110); Anion Gap 7 mmol/L (10-20); BUN (Urea Nitrogen) 42 mg/dL (8.4-25.7); Bilirubin, Total 0.3 mg/dL (0.2-1.2); Calc. Creatinine Clearance 0 mL/min (70-130); Calcium 8.7 mg/dL (7.8-10.44); Carbon Dioxide 31 mmol/L (23-31); Chloride 104 mmol/L (98-107); Globulin 4.1 g/dL (2.4-3.5); Glucose 113 mg/dL (80-115); Sodium 138 mmol/L (136-145)
[2021-06-28] MEDS ORDERED: cloNIDine 0.1 MG TAB ONE (13:58)
== END 2021-06-28 14:32 | disposition home or self-care (01) ==
LOC: ERS 11:32
DX: E87.70 Fluid overload, unspecified (principal); I13.2 Hypertensive heart and chronic kidney disease with heart failure and with stage 5 chronic kidney disease, or end stage renal disease; E11.22 Type 2 diabetes mellitus with diabetic chronic kidney disease; N18.6 End stage renal disease; I50.9 Heart failure, unspecified; D64.9 Anemia, unspecified; E03.9 Hypothyroidism, unspecified; Z99.2 Dependence on renal dialysis; Z79.899 Other long term (current) drug therapy
CPT/HCPCS: 36415; 71045; 80053; 83880; 84484; 85025; 93005

== ENCOUNTER 2021-06-29 10:13 | Emergency (ER) | payer MEDICARE, MEDICAID ==
[~2021-06-29 10:13] MED LIST: Heparin 10,000 UNITS/ 10 ML VIAL ONE
[2021-06-29] MEDS ORDERED: hydrALAZINE 20 MG/ML VIAL ONE ×2 (10:38→16:28)
[2021-06-29 10:42] LABS: #Eosinphils 0.3 thou/uL (0.0-0.7); #Lymphocytes 0.9 thou/uL (1.20-3.40); #Monocytes 0.8 thou/uL (0.11-0.59); %Basophils 0.5 % (0.0-1.0); %Eosinophils 3.9 % (0.0-10.0); %Monocytes 10.8 % (0.0-10.0); %Neutrophils 71.8 % (42.0-75.0); Hemoglobin 9.5 g/dL (14.0-18.0); Mean Corpuscular HGB CONC 31.3 g/dL (32.0-36.0); Mean Corpuscular Hemoglobin 25.6 pg (27.0-31.0); Mean Corpuscular Volume 81.7 fL (78.0-98.0); Mean Platelet Volume 10.3 fL (7.4-10.4); Platelet Count 221 thou/uL (130-400); RBC Distribution Width 20.3 % (11.5-14.5); Red Blood Cell (RBC) Count 3.73 mill/uL (4.70-6.10)
[2021-06-29 11:06] LABS: ALT (SGPT) 30 U/L (8-55); AST (SGOT) 30 U/L (5-34); Albumin 3.1 g/dL (3.4-4.8); Alkaline Phosphatase 92 U/L (40-110); Anion Gap 10 mmol/L (10-20); BUN (Urea Nitrogen) 47 mg/dL (8.4-25.7); Bilirubin, Total 0.4 mg/dL (0.2-1.2); CK (CPK) 246 U/L (30-200); Calc. Creatinine Clearance 0 mL/min (70-130); Carbon Dioxide 30 mmol/L (23-31); Chloride 102 mmol/L (98-107); Globulin 4.2 g/dL (2.4-3.5); Glucose 122 mg/dL (80-115); Lipase 13 U/L (8-78); Potassium 4.1 mmol/L (3.5-5.1); Protein, Total 7.3 g/dL (5.8-8.1); Sodium 138 mmol/L (136-145)
== END 2021-06-29 22:15 | disposition home or self-care (01) ==
LOC: ERS 10:13
DX: I16.0 Hypertensive urgency (principal); I13.2 Hypertensive heart and chronic kidney disease with heart failure and with stage 5 chronic kidney disease, or end stage renal disease; E11.22 Type 2 diabetes mellitus with diabetic chronic kidney disease; I50.9 Heart failure, unspecified; N18.6 End stage renal disease; E87.70 Fluid overload, unspecified; R94.31 Abnormal electrocardiogram [ECG] [EKG]; E03.9 Hypothyroidism, unspecified; D64.9 Anemia, unspecified; Z99.2 Dependence on renal dialysis
CPT/HCPCS: 71045; 80053; 82550; 83690; 83880; 84484; 85025; 90935; 93005; 96374; 96376; G0257; J0360; J1644

== ENCOUNTER 2021-10-14 07:40 | Inpatient (IN) | payer MEDICARE, MEDICAID ==
[2021-10-14] MEDS ORDERED: Dextrose 50% Abboject 50 ML SYRINGE ONE (08:27)
[2021-10-14 08:39] LABS: #Lymphocytes 0.4 thou/uL (1.20-3.40); #Monocytes 0.1 thou/uL (0.11-0.59); %Basophils 0.7 % (0.0-1.0); %Eosinophils 1.3 % (0.0-10.0); %Lymphocytes 14.7 % (21.0-51.0); %Monocytes 3.9 % (0.0-10.0); %Neutrophils 79.5 % (42.0-75.0); Hemoglobin 10.3 g/dL (14.0-18.0); Mean Corpuscular HGB CONC 31.4 g/dL (32.0-36.0); Mean Corpuscular Hemoglobin 26.1 pg (27.0-31.0); Mean Platelet Volume 9.9 fL (7.4-10.4); Platelet Count 208 thou/uL (130-400); RBC Distribution Width 16.6 % (11.5-14.5); Red Blood Cell (RBC) Count 3.96 mill/uL (4.70-6.10); White Blood Cell (WBC) Count 2.5 thou/uL (4.8-10.8)
[2021-10-14 09:07] LABS: ALT (SGPT) 31 U/L (8-55); AST (SGOT) 38 U/L (5-34); Albumin 3.1 g/dL (3.4-4.8); Alkaline Phosphatase 69 U/L (40-110); Anion Gap 16 mmol/L (10-20); BUN (Urea Nitrogen) 80 mg/dL (8.4-25.7); Bilirubin, Total 0.4 mg/dL (0.2-1.2); CK (CPK) 742 U/L (30-200); Calc. Creatinine Clearance 0 mL/min (70-130); Calcium 8.3 mg/dL (7.8-10.44); Carbon Dioxide 22 mmol/L (23-31); Chloride 105 mmol/L (98-107); Glucose 65 mg/dL (80-115); Potassium 3.6 mmol/L (3.5-5.1); Protein, Total 8.1 g/dL (5.8-8.1); Sodium 139 mmol/L (136-145)
[2021-10-14 09:23] LABS: CKMB 4.5 ng/mL (0-6.6)
[2021-10-14 09:49] LABS: Bacteria/HPF 4+ HPF (None Seen); Bilirubin Negative (Negative); Blood, Urine 2+ (Negative); Clarity Turbid (Clear); Glucose, Urine (Dipstick) Normal (Negative); Ketone, Urine Negative (Negative); Leukocyte 250 Leu/uL (Negative); Nitrite Negative (Negative); Protein, Urine (Dipstick) 300 mg/dL (Neg-Trace); RBC/HPF 0-3 HPF (0-3); Specific Gravity, Urine 1.012 (1.002-1.036); Squamous Epithelial 0-3 HPF (0-3); Urobilinogen Normal mg/dL (Less than 2); WBC/HPF Greater than 50 HPF (0-3)
[2021-10-14] MEDS ORDERED: Vancomycin 1 GM/200 ML BAG ONE (10:51)
[2021-10-14] MEDS ORDERED: Cefepime 2 GM VIAL ONE (10:53)
[2021-10-14] MEDS ORDERED: hydrALAZINE 20 MG/ML VIAL ONE ×2 (11:23→13:30)
[2021-10-14] MEDS ORDERED: Dextrose 5% in Water 1,000 ML IV PRN (13:30)
[2021-10-14] MEDS ORDERED: HumaLOG 300 UNITS/3 ML VIAL SC PRN (13:30)
[2021-10-14] MEDS ORDERED: Dextrose 50% Abboject 50 ML SYRINGE SLOW IVP PRN (13:30)
[2021-10-14] MEDS ORDERED: Simethicone Chewable 80 MG TAB PO PRN (13:51)
[2021-10-14] MEDS ORDERED: hydrALAZINE 25 MG TAB ONE (14:58)
[2021-10-14] MEDS ORDERED: cloNIDine 0.1 MG TAB ONE (14:58)
[2021-10-14] MEDS: cloNIDine 0.3 MG TAB PO SCH (15:39)
[2021-10-14] MEDS: hydrALAZINE 25 MG TAB PO SCH ×2 (15:39→21:52)
[2021-10-14] MEDS: Labetalol HCl 100 MG/20 ML VIAL SLOW IVP PRN (15:43)
[2021-10-14] MEDS ORDERED: Labetalol HCl 100 MG/20 ML VIAL ONE ×2 (15:46→15:47)
[2021-10-14] MEDS: EPOETIN ALFA-EPBX (ESRD) 10,000 UNIT/ML VIAL IVP SCH (15:52)
[2021-10-14] MEDS: Carvedilol 6.25 MG TAB PO SCH (16:07)
[2021-10-14 17:08] LABS: SARS-CoV-2 NAA Rapid Test DETECTED (NotDetected)
[2021-10-14 18:29] LABS: Troponin I 0.086 ng/mL (< 0.028)
[2021-10-14 21:08] VITALS: BMI 21.9
[2021-10-14] MEDS ORDERED: cloNIDine 0.1 MG TAB PO SCH (21:30)
[2021-10-14] MEDS: NIFEdipine XL 60 MG TAB PO SCH (21:53)
[2021-10-14] MEDS: Heparin 5,000 UNITS/ML VIAL SC SCH (21:55)
[2021-10-14] MEDS ORDERED: Vancomycin 1 GM in Premix Bag 1 BAG IVPB SCH (23:00)
[2021-10-14] MEDS ORDERED: HOLD VANCOMYCIN FOR LEVEL >20 IVP SCH (23:00)
[2021-10-14] MEDS ORDERED: Vancomycin HCl 500 MG in Sodium Chloride 0.9% 100 ML IVPB SCH (23:00)
[2021-10-14] MEDS ORDERED: Vancomycin HCl 1.25 GM in Sodium Chloride 0.9% 250 ML 250 ML IVPB SCH (23:00)
[2021-10-14] MEDS ORDERED: Vancomycin HCl 750 MG in Sodium Chloride 0.9% 250 ML 250 ML IVPB SCH (23:00)
[2021-10-14] MEDS ORDERED: Zolpidem Tartrate 5 MG TAB PO PRN (23:43)
[2021-10-14] MEDS: hydrALAZINE 20 MG/ML VIAL SLOW IVP PRN (23:59)
[2021-10-15] MEDS: cloNIDine 0.3 MG TAB PO SCH (00:23)
[2021-10-15] MEDS: Labetalol HCl 100 MG/20 ML VIAL SLOW IVP PRN (03:02)
[2021-10-15] MEDS: hydrALAZINE 20 MG/ML VIAL SLOW IVP PRN (04:14)
[2021-10-15] MEDS: Levothyroxine Sodium 50 MCG TAB PO SCH (04:15)
[2021-10-15 06:15] LABS: Band 12 % (5-11); Hemoglobin 8.3 g/dL (14.0-18.0); Lymphocytes 19 % (21-51); MDiff Complete? YES; Mean Corpuscular HGB CONC 31.9 g/dL (32.0-36.0); Mean Corpuscular Hemoglobin 26.2 pg (27.0-31.0); Mean Platelet Volume 10.5 fL (7.4-10.4); Monocytes 7 % (0-10); Neutrophil 62 % (42-75); Platelet Count 163 thou/uL (130-400); RBC Distribution Width 16.6 % (11.5-14.5); Red Blood Cell (RBC) Count 3.18 mill/uL (4.70-6.10); White Blood Cell (WBC) Count 3.9 thou/uL (4.8-10.8)
[2021-10-15 06:41] LABS: ALT (SGPT) 20 U/L (8-55); Albumin 2.2 g/dL (3.4-4.8); Alkaline Phosphatase 48 U/L (40-110); Anion Gap 16 mmol/L (10-20); Bilirubin, Total 0.3 mg/dL (0.2-1.2); Calc. Creatinine Clearance 11 mL/min (70-130); Calcium 7.7 mg/dL (7.8-10.44); Carbon Dioxide 21 mmol/L (23-31); Chloride 105 mmol/L (98-107); Globulin 3.8 g/dL (2.4-3.5); Glucose 101 mg/dL (80-115); Potassium 3.5 mmol/L (3.5-5.1); Sodium 138 mmol/L (136-145)
[2021-10-15 06:42] LABS: AST (SGOT) 22 U/L (5-34); BUN (Urea Nitrogen) 77 mg/dL (8.4-25.7)
[2021-10-15] MEDS ORDERED: Enoxaparin Sodium 30 MG/0.3 ML SYRINGE SC SCH (09:00)
[2021-10-15] MEDS: Heparin 5,000 UNITS/ML VIAL SC SCH ×2 (10:11→21:43)
[2021-10-15] MEDS: Tamsulosin HCl 0.4 MG CAP PO SCH (10:13)
[2021-10-15] MEDS: NIFEdipine XL 60 MG TAB PO SCH ×2 (10:13→21:46)
[2021-10-15] MEDS: cloNIDine 0.1 MG TAB PO SCH ×3 (10:13→21:47)
[2021-10-15] MEDS: Folic Acid 1 MG TAB PO SCH (10:13)
[2021-10-15] MEDS: Carvedilol 6.25 MG TAB PO SCH ×2 (10:13→21:47)
[2021-10-15] MEDS: hydrALAZINE 25 MG TAB PO SCH ×3 (10:14→21:47)
[2021-10-15] MEDS ORDERED: Heparin 10,000 UNITS/ 10 ML VIAL ONE ×2 (10:38→11:08)
[2021-10-15] MEDS ORDERED: Fosfomycin 3 GM/Packet PO SCH (12:00)
[2021-10-15 14:01] LABS: HBSAg Index 0.33 S/CO (0-0.99); Hep B Surf Ag Non-Reactive S/CO (NonReactive)
[2021-10-15] MEDS ORDERED: Cefepime 0.5 GM, Admixture Fee 1 EACH in Sodium Chloride 0.9% 100 ML IVPB SCH (15:00)
[2021-10-15] MEDS ORDERED: Non-Formulary Item 1 EACH (Zolpidem Tartrate [Ambien] 10 MG Tablet) PO PRN (16:21)
[2021-10-15] MEDS ORDERED: cloNIDine 0.1 MG TAB PO SCH (21:00)
[2021-10-16] MEDS: Levothyroxine Sodium 50 MCG TAB PO SCH (05:53)
[2021-10-16 06:47] LABS: ALT (SGPT) 20 U/L (8-55); AST (SGOT) 24 U/L (5-34); Albumin 2.4 g/dL (3.4-4.8); Alkaline Phosphatase 53 U/L (40-110); Anion Gap 12 mmol/L (10-20); BUN (Urea Nitrogen) 35 mg/dL (8.4-25.7); Bilirubin, Total 0.4 mg/dL (0.2-1.2); Calc. Creatinine Clearance 17 mL/min (70-130); Calcium 7.7 mg/dL (7.8-10.44); Carbon Dioxide 26 mmol/L (23-31); Chloride 103 mmol/L (98-107); Glucose 97 mg/dL (80-115); Potassium 3.3 mmol/L (3.5-5.1); Protein, Total 6.4 g/dL (5.8-8.1); Sodium 138 mmol/L (136-145)
[2021-10-16 06:51] LABS: Band 7 % (5-11); Eosinophils 1 % (0-10); Hemoglobin 8.7 g/dL (14.0-18.0); Lymphocytes 15 % (21-51); MDiff Complete? YES; Mean Corpuscular HGB CONC 31.7 g/dL (32.0-36.0); Mean Corpuscular Hemoglobin 26.1 pg (27.0-31.0); Mean Corpuscular Volume 82.1 fL (78.0-98.0); Mean Platelet Volume 10.3 fL (7.4-10.4); Monocytes 15 % (0-10); Neutrophil 62 % (42-75); Platelet Count 165 thou/uL (130-400); RBC Distribution Width 16.5 % (11.5-14.5); Red Blood Cell (RBC) Count 3.35 mill/uL (4.70-6.10); Schistocytes SLIGHT = 2-5 cells (100X) (0-1/hpf); White Blood Cell (WBC) Count 3.3 thou/uL (4.8-10.8)
[2021-10-16] MEDS: Heparin 5,000 UNITS/ML VIAL SC SCH ×2 (08:45→21:02)
[2021-10-16] MEDS: NIFEdipine XL 60 MG TAB PO SCH ×2 (08:45→21:01)
[2021-10-16] MEDS: hydrALAZINE 25 MG TAB PO SCH ×3 (08:45→21:01)
[2021-10-16] MEDS: cloNIDine 0.1 MG TAB PO SCH ×3 (08:45→21:01)
[2021-10-16] MEDS: Carvedilol 6.25 MG TAB PO SCH ×2 (08:45→21:02)
[2021-10-16] MEDS: Folic Acid 1 MG TAB PO SCH (08:45)
[2021-10-16] MEDS: Tamsulosin HCl 0.4 MG CAP PO SCH (08:45)
[2021-10-16] MEDS ORDERED: NIFEdipine XL 60 MG TAB PO SCH (09:00)
[2021-10-16] MEDS: Lantus 1000 UNITS/10 ML VIAL SC SCH (10:06)
[2021-10-16] MEDS: EPOETIN ALFA-EPBX (ESRD) 10,000 UNIT/ML VIAL IVP SCH (16:03)
[2021-10-16] MEDS ORDERED: Atorvastatin Calcium 40 MG TAB PO SCH (21:00)
[2021-10-17] MEDS: Levothyroxine Sodium 50 MCG TAB PO SCH (06:15)
[2021-10-17 07:53] LABS: Hemoglobin 8.8 g/dL (14.0-18.0); Mean Corpuscular Hemoglobin 25.8 pg (27.0-31.0); Mean Corpuscular Volume 83.2 fL (78.0-98.0); Mean Platelet Volume 9.8 fL (7.4-10.4); Platelet Count 196 thou/uL (130-400); RBC Distribution Width 16.6 % (11.5-14.5); Red Blood Cell (RBC) Count 3.41 mill/uL (4.70-6.10); White Blood Cell (WBC) Count 3.8 thou/uL (4.8-10.8)
[2021-10-17 08:12] LABS: ALT (SGPT) 20 U/L (8-55); AST (SGOT) 24 U/L (5-34); Albumin 2.5 g/dL (3.4-4.8); Alkaline Phosphatase 54 U/L (40-110); Anion Gap 16 mmol/L (10-20); BUN (Urea Nitrogen) 40 mg/dL (8.4-25.7); Bilirubin, Total 0.4 mg/dL (0.2-1.2); Calc. Creatinine Clearance 14 mL/min (70-130); Calcium 8.2 mg/dL (7.8-10.44); Carbon Dioxide 23 mmol/L (23-31); Chloride 102 mmol/L (98-107); Globulin 4.3 g/dL (2.4-3.5); Glucose 83 mg/dL (80-115); Potassium 3.8 mmol/L (3.5-5.1); Protein, Total 6.8 g/dL (5.8-8.1); Sodium 137 mmol/L (136-145)
[2021-10-17 09:37] LABS: Band 5 % (5-11); Bite Cells SLIGHT = 2-5 cells (100X) (0-1/hpf); Burr Cells SLIGHT = 2-5 cells (100X) (0-1/hpf); Eosinophils 1 % (0-10); Lymphocytes 19 % (21-51); MDiff Complete? YES; Monocytes 7 % (0-10); Neutrophil 60 % (42-75); Platelet Morphology Comment Appears Adequate; Polychromasia SLIGHT = 2-3 cells (100X) (0-2/hpf); Reactive Lymphocytes 8 % (0-10); Schistocytes MODERATE= 6-15 cells (100X) (0-1/hpf)
[2021-10-17] MEDS ORDERED: Heparin 10,000 UNITS/ 10 ML VIAL ONE (10:42)
[2021-10-17] MEDS: Lantus 1000 UNITS/10 ML VIAL SC SCH (11:19)
[2021-10-17] MEDS: Tamsulosin HCl 0.4 MG CAP PO SCH (11:19)
[2021-10-17] MEDS: Folic Acid 1 MG TAB PO SCH (11:19)
[2021-10-17] MEDS: NIFEdipine XL 60 MG TAB PO SCH (11:19)
[2021-10-17] MEDS: hydrALAZINE 25 MG TAB PO SCH ×2 (11:19→15:59)
[2021-10-17] MEDS: Carvedilol 6.25 MG TAB PO SCH (11:19)
[2021-10-17] MEDS: Heparin 5,000 UNITS/ML VIAL SC SCH (11:19)
[2021-10-17] MEDS: cloNIDine 0.1 MG TAB PO SCH ×2 (11:19→15:59)
[2021-10-17 19:41] VITALS: BP 167/81; TEMP 97.9
== END 2021-10-17 19:15 | disposition home or self-care (01) | DRG 177 ==
LOC: ERS 07:40 → ERHOLD 12:50 → 2SW 20:17
PROVIDERS: ADMIT Emergency Medicine; ATTEND Emergency Medicine
PROC: 5A1D70Z Performance of Urinary Filtration, Intermittent, Less than 6 Hours Per Day (ICD-10-PCS; principal; 2021-10-14)
PROC: 8E0ZXY6 Isolation (ICD-10-PCS; 2021-10-14)
DX: U07.1 COVID-19 (principal); N18.6 End stage renal disease; R65.10 Systemic inflammatory response syndrome (SIRS) of non-infectious origin without acute organ dysfunction; E46 Unspecified protein-calorie malnutrition; I13.2 Hypertensive heart and chronic kidney disease with heart failure and with stage 5 chronic kidney disease, or end stage renal disease; I16.0 Hypertensive urgency; E03.9 Hypothyroidism, unspecified; E11.22 Type 2 diabetes mellitus with diabetic chronic kidney disease; D63.1 Anemia in chronic kidney disease; N40.0 Benign prostatic hyperplasia without lower urinary tract symptoms; I50.9 Heart failure, unspecified; E11.649 Type 2 diabetes mellitus with hypoglycemia without coma; Z68.21 Body mass index [BMI] 21.0-21.9, adult; Z99.2 Dependence on renal dialysis; Z88.8 Allergy status to other drugs, medicaments and biological substances; Z79.890 Hormone replacement therapy; Z79.899 Other long term (current) drug therapy
CPT/HCPCS: 36415; 36416; 70450; 71045; 80053; 81003; 81015; 82550; 82553; 83605; 83735; 83880; 84145; 84439; 84443; 84484; 85025; 87077; 87086; 87186; 87340; 93005; 94760; J0360; J0692; J1644; J1815; J3370; Q5105; U0002

== ENCOUNTER 2021-11-05 13:00 | Inpatient (IN) | payer MEDICARE, MEDICAID ==
[2021-11-05 13:58] LABS: #Eosinphils 0.3 thou/uL (0.0-0.7); #Monocytes 0.4 thou/uL (0.11-0.59); #Neutrophils 2.8 thou/uL (1.40-6.50); %Basophils 0.4 % (0.0-1.0); %Eosinophils 6.5 % (0.0-10.0); %Lymphocytes 21.5 % (21.0-51.0); %Monocytes 9.3 % (0.0-10.0); %Neutrophils 62.3 % (42.0-75.0); Hemoglobin 8.2 g/dL (14.0-18.0); Mean Corpuscular HGB CONC 30.9 g/dL (32.0-36.0); Mean Corpuscular Hemoglobin 24.9 pg (27.0-31.0); Mean Corpuscular Volume 80.5 fL (78.0-98.0); Mean Platelet Volume 10.9 fL (7.4-10.4); Platelet Count 152 thou/uL (130-400); RBC Distribution Width 16.9 % (11.5-14.5); Red Blood Cell (RBC) Count 3.29 mill/uL (4.70-6.10); White Blood Cell (WBC) Count 4.5 thou/uL (4.8-10.8)
[2021-11-05] MEDS ORDERED: Labetalol HCl 100 MG/20 ML VIAL ONE (14:19)
[2021-11-05 14:43] LABS: CKMB 4.8 ng/mL (0-6.6)
[2021-11-05 14:52] LABS: Albumin 2.6 g/dL (3.4-4.8)
[2021-11-05 14:53] LABS: Chloride 110 mmol/L (98-107); Potassium 4.5 mmol/L (3.5-5.1); Sodium 141 mmol/L (136-145)
[2021-11-05 14:54] LABS: Calcium 8.3 mg/dL (7.8-10.44); Glucose 83 mg/dL (80-115)
[2021-11-05 14:55] LABS: Globulin 4.1 g/dL (2.4-3.5); Protein, Total 6.7 g/dL (5.8-8.1)
[2021-11-05 14:56] LABS: Anion Gap 15 mmol/L (10-20); Bilirubin, Total 0.6 mg/dL (0.2-1.2); Carbon Dioxide 21 mmol/L (23-31)
[2021-11-05 14:57] LABS: Alkaline Phosphatase 65 U/L (40-110)
[2021-11-05 14:58] LABS: Calc. Creatinine Clearance 0 mL/min (70-130)
[2021-11-05 14:59] LABS: BUN (Urea Nitrogen) 68 mg/dL (8.4-25.7)
[2021-11-05 15:00] LABS: ALT (SGPT) 23 U/L (8-55); AST (SGOT) 27 U/L (5-34)
[2021-11-05] MEDS ORDERED: niCARdipine 25 MG/10 ML VIAL ONE (16:03)
[2021-11-05] MEDS ORDERED: Dextrose 50% Abboject 50 ML SYRINGE SLOW IVP PRN (16:46)
[2021-11-05] MEDS ORDERED: Dextrose 5% in Water 1,000 ML IV PRN (16:46)
[2021-11-05] MEDS ORDERED: HumaLOG 300 UNITS/3 ML VIAL SC PRN ×3 (16:47→17:05)
[2021-11-05] MEDS ORDERED: Non-Formulary Item 1 EACH (Zolpidem Tartrate [Ambien] 10 MG Tablet) PO PRN (17:00)
[2021-11-05] MEDS ORDERED: niCARdipine 25 MG in Sodium Chloride 0.9% 250 ML 250 ML IVPB SCH (17:15)
[2021-11-05 19:11] LABS: SARS-CoV-2 NAA Rapid Test DETECTED (NotDetected)
[2021-11-05] MEDS ORDERED: Carvedilol 6.25 MG TAB PO SCH (21:00)
[2021-11-05] MEDS: Heparin 5,000 UNITS/ML VIAL SC SCH (21:29)
[2021-11-06] MEDS ORDERED: hydrOXYzine 25 MG TAB PO SCH (00:45)
[2021-11-06] MEDS: Levothyroxine Sodium 50 MCG TAB PO SCH (06:12)
[2021-11-06 06:18] LABS: #Eosinphils 0.3 thou/uL (0.0-0.7); #Lymphocytes 1.1 thou/uL (1.20-3.40); #Monocytes 0.4 thou/uL (0.11-0.59); #Neutrophils 3.7 thou/uL (1.40-6.50); %Basophils 0.4 % (0.0-1.0); %Eosinophils 5.4 % (0.0-10.0); %Lymphocytes 19.9 % (21.0-51.0); %Monocytes 7.6 % (0.0-10.0); %Neutrophils 66.7 % (42.0-75.0); Hemoglobin 8.5 g/dL (14.0-18.0); Mean Corpuscular HGB CONC 31.5 g/dL (32.0-36.0); Mean Corpuscular Hemoglobin 25.4 pg (27.0-31.0); Mean Corpuscular Volume 80.6 fL (78.0-98.0); Mean Platelet Volume 10.8 fL (7.4-10.4); Platelet Count 182 thou/uL (130-400); RBC Distribution Width 16.8 % (11.5-14.5); Red Blood Cell (RBC) Count 3.32 mill/uL (4.70-6.10); White Blood Cell (WBC) Count 5.5 thou/uL (4.8-10.8)
[2021-11-06 06:18] LABS: Anion Gap 16 mmol/L (10-20); BUN (Urea Nitrogen) 67 mg/dL (8.4-25.7); Calc. Creatinine Clearance 14 mL/min (70-130); Calcium 8.2 mg/dL (7.8-10.44); Carbon Dioxide 18 mmol/L (23-31); Chloride 108 mmol/L (98-107); Glucose 106 mg/dL (80-115); Potassium 4.4 mmol/L (3.5-5.1); Sodium 138 mmol/L (136-145)
[2021-11-06] MEDS ORDERED: niCARdipine 40MG In NaCl 40 MG/200 ML BAG IVPB SCH (07:00)
[2021-11-06] MEDS ORDERED: Heparin 10,000 UNITS/ 10 ML VIAL ONE (11:11)
[2021-11-06] MEDS: Lantus 1000 UNITS/10 ML VIAL SC SCH (11:16)
[2021-11-06] MEDS: Carvedilol 6.25 MG TAB PO SCH (13:03)
[2021-11-06] MEDS: Tamsulosin HCl 0.4 MG CAP PO SCH (13:03)
[2021-11-06] MEDS: Folic Acid 1 MG TAB PO SCH (13:03)
[2021-11-06] MEDS: niCARdipine 50 MG in Sodium Chloride 0.9% 250 ML 230 ML IV SCH (13:04)
[2021-11-06] MEDS: Heparin 5,000 UNITS/ML VIAL SC SCH ×2 (13:07→19:57)
[2021-11-06] MEDS ORDERED: NIFEdipine XL 60 MG TAB PO SCH (15:30)
[2021-11-06] MEDS: Atorvastatin Calcium 40 MG TAB PO SCH (19:57)
[2021-11-06] MEDS: hydrOXYzine 25 MG TAB PO SCH (19:57)
[2021-11-07] MEDS: niCARdipine 50 MG in Sodium Chloride 0.9% 250 ML 230 ML IV SCH (00:27)
[2021-11-07 03:50] LABS: #Eosinphils 0.3 thou/uL (0.0-0.7); #Lymphocytes 1.2 thou/uL (1.20-3.40); #Monocytes 0.8 thou/uL (0.11-0.59); #Neutrophils 3.5 thou/uL (1.40-6.50); %Basophils 0.2 % (0.0-1.0); %Eosinophils 4.9 % (0.0-10.0); %Lymphocytes 20.3 % (21.0-51.0); %Monocytes 13.7 % (0.0-10.0); %Neutrophils 60.9 % (42.0-75.0); Hemoglobin 7.6 g/dL (14.0-18.0); Mean Corpuscular HGB CONC 31.1 g/dL (32.0-36.0); Mean Corpuscular Hemoglobin 25.1 pg (27.0-31.0); Mean Corpuscular Volume 80.7 fL (78.0-98.0); Mean Platelet Volume 10.6 fL (7.4-10.4); Platelet Count 159 thou/uL (130-400); RBC Distribution Width 16.9 % (11.5-14.5); Red Blood Cell (RBC) Count 3.02 mill/uL (4.70-6.10); White Blood Cell (WBC) Count 5.7 thou/uL (4.8-10.8)
[2021-11-07 04:09] LABS: Anion Gap 11 mmol/L (10-20); BUN (Urea Nitrogen) 32 mg/dL (8.4-25.7); Calc. Creatinine Clearance 20 mL/min (70-130); Calcium 7.6 mg/dL (7.8-10.44); Carbon Dioxide 25 mmol/L (23-31); Chloride 102 mmol/L (98-107); Glucose 121 mg/dL (80-115); Potassium 3.7 mmol/L (3.5-5.1); Sodium 134 mmol/L (136-145)
[2021-11-07] MEDS: Levothyroxine Sodium 50 MCG TAB PO SCH (05:42)
[2021-11-07] MEDS: Tamsulosin HCl 0.4 MG CAP PO SCH (08:54)
[2021-11-07] MEDS: Heparin 5,000 UNITS/ML VIAL SC SCH ×2 (08:54→20:13)
[2021-11-07] MEDS: Folic Acid 1 MG TAB PO SCH (08:54)
[2021-11-07] MEDS ORDERED: cloNIDine 0.1 MG TAB PO SCH ×2 (09:00→13:15)
[2021-11-07] MEDS ORDERED: NIFEdipine XL 60 MG TAB PO SCH (09:00)
[2021-11-07] MEDS: Carvedilol 6.25 MG TAB PO SCH ×2 (09:06→16:31)
[2021-11-07] MEDS: Lantus 1000 UNITS/10 ML VIAL SC SCH (10:17)
[2021-11-07] MEDS: NIFEdipine XL 60 MG TAB PO SCH ×2 (10:20→15:49)
[2021-11-07] MEDS ORDERED: Acetaminophen 325 MG TAB PO PRN (18:56)
[2021-11-07] MEDS: Atorvastatin Calcium 40 MG TAB PO SCH (20:13)
[2021-11-07] MEDS: hydrOXYzine 25 MG TAB PO SCH (20:13)
[2021-11-07] MEDS: cloNIDine 0.1 MG TAB PO SCH (20:13)
[2021-11-08] MEDS: Levothyroxine Sodium 50 MCG TAB PO SCH (05:41)
[2021-11-08 06:21] LABS: #Eosinphils 0.1 thou/uL (0.0-0.7); #Lymphocytes 0.9 thou/uL (1.20-3.40); #Monocytes 0.7 thou/uL (0.11-0.59); #Neutrophils 12.8 thou/uL (1.40-6.50); %Basophils 0.1 % (0.0-1.0); %Eosinophils 0.4 % (0.0-10.0); %Lymphocytes 6.4 % (21.0-51.0); %Monocytes 4.8 % (0.0-10.0); %Neutrophils 88.4 % (42.0-75.0); Hemoglobin 7.4 g/dL (14.0-18.0); Mean Corpuscular HGB CONC 30.1 g/dL (32.0-36.0); Mean Corpuscular Hemoglobin 25.4 pg (27.0-31.0); Mean Corpuscular Volume 84.6 fL (78.0-98.0); Mean Platelet Volume 10.7 fL (7.4-10.4); Platelet Count 157 thou/uL (130-400); Red Blood Cell (RBC) Count 2.89 mill/uL (4.70-6.10); White Blood Cell (WBC) Count 14.5 thou/uL (4.8-10.8)
[2021-11-08 06:33] LABS: Anion Gap 13 mmol/L (10-20); BUN (Urea Nitrogen) 37 mg/dL (8.4-25.7); Calc. Creatinine Clearance 16 mL/min (70-130); Calcium 7.9 mg/dL (7.8-10.44); Carbon Dioxide 24 mmol/L (23-31); Chloride 103 mmol/L (98-107); Glucose 108 mg/dL (80-115); Sodium 136 mmol/L (136-145)
[2021-11-08 08:23] LABS: Glucose 101 mg/dL (80-115)
[2021-11-08] MEDS: Carvedilol 6.25 MG TAB PO SCH ×2 (08:24→18:25)
[2021-11-08] MEDS ORDERED: FLU VACC QS2021-22(65YR UP)/PF 240 MCG/0.7 ML SYRINGE IM ONE (09:00)
[2021-11-08] MEDS ORDERED: Heparin 10,000 UNITS/ 10 ML VIAL ONE (09:21)
[2021-11-08] MEDS: NIFEdipine XL 60 MG TAB PO SCH (09:56)
[2021-11-08] MEDS: Heparin 5,000 UNITS/ML VIAL SC SCH ×2 (09:57→20:47)
[2021-11-08] MEDS: Folic Acid 1 MG TAB PO SCH (09:57)
[2021-11-08] MEDS: Tamsulosin HCl 0.4 MG CAP PO SCH (09:57)
[2021-11-08] MEDS: cloNIDine 0.1 MG TAB PO SCH ×3 (09:58→20:47)
[2021-11-08] MEDS: Lantus 1000 UNITS/10 ML VIAL SC SCH (10:17)
[2021-11-08] MEDS ORDERED: Cefepime 1 GM in Sodium Chloride 0.9% 100 ML IVPB SCH (14:00)
[2021-11-08] MEDS: Piperacillin/Tazobactam 3.375 GM in Sodium Chloride 0.9% 100 ML IVPB SCH ×2 (14:59→20:45)
[2021-11-08 17:33] LABS: Glucose 87 mg/dL (80-115)
[2021-11-08 17:59] LABS: HBSAB Concentration Less than 8.00 mIU/mL; HBSAg Index 0.26 S/CO (0-0.99); Hep B Core Total Ab Non-Reactive (NonReactive); Hep B Core Total Index 0.12 S/CO (0-0.79); Hep B Surf AB Non-Reactive (NonReactive); Hep B Surf Ag Non-Reactive S/CO (NonReactive)
[2021-11-08 18:02] LABS: Hep C IgG Ab Reflex HepC Qnt (NonReactive); Hep C Index 12.34 S/CO (0-0.79)
[2021-11-08] MEDS ORDERED: Piperacillin/Tazobactam 3.375 GM in Sodium Chloride 0.9% 100 ML IVPB SCH (20:00)
[2021-11-08] MEDS: Atorvastatin Calcium 40 MG TAB PO SCH (20:46)
[2021-11-08] MEDS: hydrOXYzine 25 MG TAB PO SCH (20:47)
[2021-11-09] MEDS: Piperacillin/Tazobactam 3.375 GM in Sodium Chloride 0.9% 100 ML IVPB SCH ×3 (00:26→22:43)
[2021-11-09] MEDS: Levothyroxine Sodium 50 MCG TAB PO SCH (05:47)
[2021-11-09 06:04] LABS: #Eosinphils 0.2 thou/uL (0.0-0.7); #Lymphocytes 1.1 thou/uL (1.20-3.40); #Monocytes 1.3 thou/uL (0.11-0.59); #Neutrophils 8.5 thou/uL (1.40-6.50); %Eosinophils 1.4 % (0.0-10.0); %Lymphocytes 9.5 % (21.0-51.0); %Neutrophils 77.1 % (42.0-75.0); Hemoglobin 7.2 g/dL (14.0-18.0); Mean Corpuscular HGB CONC 31.4 g/dL (32.0-36.0); Mean Corpuscular Hemoglobin 26.2 pg (27.0-31.0); Mean Corpuscular Volume 83.6 fL (78.0-98.0); Mean Platelet Volume 10.9 fL (7.4-10.4); Platelet Count 124 thou/uL (130-400); RBC Distribution Width 16.7 % (11.5-14.5); Red Blood Cell (RBC) Count 2.73 mill/uL (4.70-6.10); White Blood Cell (WBC) Count 11.1 thou/uL (4.8-10.8)
[2021-11-09 06:38] LABS: Anion Gap 7 mmol/L (10-20); BUN (Urea Nitrogen) 20 mg/dL (8.4-25.7); Calc. Creatinine Clearance 24 mL/min (70-130); Calcium 7.8 mg/dL (7.8-10.44); Carbon Dioxide 30 mmol/L (23-31); Chloride 99 mmol/L (98-107); Glucose 96 mg/dL (80-115); Potassium 3.4 mmol/L (3.5-5.1); Sodium 133 mmol/L (136-145)
[2021-11-09] MEDS: Heparin 5,000 UNITS/ML VIAL SC SCH ×2 (12:05→22:43)
[2021-11-09] MEDS: Tamsulosin HCl 0.4 MG CAP PO SCH (12:06)
[2021-11-09] MEDS: Carvedilol 6.25 MG TAB PO SCH ×2 (12:06→17:43)
[2021-11-09] MEDS: Folic Acid 1 MG TAB PO SCH (12:06)
[2021-11-09] MEDS: cloNIDine 0.1 MG TAB PO SCH ×3 (12:07→22:42)
[2021-11-09] MEDS: NIFEdipine XL 60 MG TAB PO SCH (12:07)
[2021-11-09] MEDS ORDERED: Metamucil PACK PO SCH (12:15)
[2021-11-09] MEDS: Lantus 1000 UNITS/10 ML VIAL SC SCH (12:25)
[2021-11-09] MEDS: Atorvastatin Calcium 40 MG TAB PO SCH (22:42)
[2021-11-09] MEDS: hydrOXYzine 25 MG TAB PO SCH (22:43)
[2021-11-10] MEDS: Levothyroxine Sodium 50 MCG TAB PO SCH (05:12)
[2021-11-10 06:09] LABS: #Eosinphils 0.4 thou/uL (0.0-0.7); #Lymphocytes 1.3 thou/uL (1.20-3.40); #Monocytes 1.2 thou/uL (0.11-0.59); %Basophils 0.2 % (0.0-1.0); %Lymphocytes 14.4 % (21.0-51.0); %Monocytes 13.7 % (0.0-10.0); %Neutrophils 67.7 % (42.0-75.0); Hemoglobin 7.4 g/dL (14.0-18.0); Mean Corpuscular HGB CONC 30.8 g/dL (32.0-36.0); Mean Corpuscular Hemoglobin 26.1 pg (27.0-31.0); Mean Corpuscular Volume 84.8 fL (78.0-98.0); Mean Platelet Volume 10.8 fL (7.4-10.4); Platelet Count 140 thou/uL (130-400); RBC Distribution Width 16.9 % (11.5-14.5); Red Blood Cell (RBC) Count 2.82 mill/uL (4.70-6.10); White Blood Cell (WBC) Count 8.9 thou/uL (4.8-10.8)
[2021-11-10 06:26] LABS: Anion Gap 3 mmol/L (10-20); BUN (Urea Nitrogen) 29 mg/dL (8.4-25.7); Calc. Creatinine Clearance 19 mL/min (70-130); Calcium 7.5 mg/dL (7.8-10.44); Carbon Dioxide 35 mmol/L (23-31); Chloride 102 mmol/L (98-107); Potassium 3.6 mmol/L (3.5-5.1); Sodium 136 mmol/L (136-145)
[2021-11-10 06:31] LABS: Glucose 58 mg/dL (80-115)
[2021-11-10] MEDS ORDERED: Iopamidol 370 76% 100 ML VIAL ONE (09:10)
[2021-11-10] MEDS: Metamucil PACK PO SCH (10:05)
[2021-11-10] MEDS: cloNIDine 0.1 MG TAB PO SCH ×3 (10:05→20:37)
[2021-11-10] MEDS: Lantus 1000 UNITS/10 ML VIAL SC SCH (10:06)
[2021-11-10] MEDS: Tamsulosin HCl 0.4 MG CAP PO SCH (10:06)
[2021-11-10] MEDS: Heparin 5,000 UNITS/ML VIAL SC SCH ×2 (10:06→20:37)
[2021-11-10] MEDS: Carvedilol 6.25 MG TAB PO SCH ×2 (10:06→17:14)
[2021-11-10] MEDS: Folic Acid 1 MG TAB PO SCH (10:06)
[2021-11-10] MEDS: NIFEdipine XL 60 MG TAB PO SCH (10:06)
[2021-11-10] MEDS: Piperacillin/Tazobactam 3.375 GM in Sodium Chloride 0.9% 100 ML IVPB SCH (14:16)
[2021-11-10] MEDS ORDERED: NIFEdipine XL 60 MG TAB PO SCH (17:45)
[2021-11-10] MEDS: Atorvastatin Calcium 40 MG TAB PO SCH (20:37)
[2021-11-10] MEDS: hydrOXYzine 25 MG TAB PO SCH (20:43)
[2021-11-11] MEDS: Levothyroxine Sodium 50 MCG TAB PO SCH (05:14)
[2021-11-11 06:32] LABS: #Eosinphils 0.4 thou/uL (0.0-0.7); #Lymphocytes 1.3 thou/uL (1.20-3.40); #Monocytes 0.8 thou/uL (0.11-0.59); #Neutrophils 4.5 thou/uL (1.40-6.50); %Basophils 0.2 % (0.0-1.0); %Eosinophils 5.9 % (0.0-10.0); %Lymphocytes 18.3 % (21.0-51.0); %Monocytes 10.8 % (0.0-10.0); %Neutrophils 64.8 % (42.0-75.0); Hemoglobin 7.9 g/dL (14.0-18.0); Mean Corpuscular HGB CONC 30.9 g/dL (32.0-36.0); Mean Corpuscular Volume 84.3 fL (78.0-98.0); Mean Platelet Volume 10.8 fL (7.4-10.4); Platelet Count 170 thou/uL (130-400); RBC Distribution Width 16.5 % (11.5-14.5); Red Blood Cell (RBC) Count 3.05 mill/uL (4.70-6.10)
[2021-11-11 07:03] LABS: Anion Gap 14 mmol/L (10-20); BUN (Urea Nitrogen) 33 mg/dL (8.4-25.7); Calc. Creatinine Clearance 17 mL/min (70-130); Calcium 7.6 mg/dL (7.8-10.44); Carbon Dioxide 25 mmol/L (23-31); Chloride 101 mmol/L (98-107); Glucose 73 mg/dL (80-115); Potassium 3.7 mmol/L (3.5-5.1); Sodium 136 mmol/L (136-145)
[2021-11-11 08:00] LABS: Glucose 64 mg/dL (80-115)
[2021-11-11] MEDS ORDERED: Heparin 10,000 UNITS/ 10 ML VIAL ONE (08:24)
[2021-11-11] MEDS: Lantus 1000 UNITS/10 ML VIAL SC SCH ×2 (08:43→14:59)
[2021-11-11 13:47] LABS: Glucose 81 mg/dL (80-115)
[2021-11-11] MEDS: NIFEdipine XL 60 MG TAB PO SCH (14:52)
[2021-11-11] MEDS: cloNIDine 0.1 MG TAB PO SCH ×3 (14:54→20:03)
[2021-11-11] MEDS: Tamsulosin HCl 0.4 MG CAP PO SCH (14:55)
[2021-11-11] MEDS: Carvedilol 6.25 MG TAB PO SCH ×2 (14:55→17:44)
[2021-11-11] MEDS: Folic Acid 1 MG TAB PO SCH (14:55)
[2021-11-11] MEDS: Heparin 5,000 UNITS/ML VIAL SC SCH ×2 (14:55→20:04)
[2021-11-11] MEDS: Metamucil PACK PO SCH (14:59)
[2021-11-11] MEDS: Atorvastatin Calcium 40 MG TAB PO SCH (20:04)
[2021-11-11] MEDS: hydrOXYzine 25 MG TAB PO SCH (20:04)
[2021-11-11 23:51] LABS: Glucose 170 mg/dL (80-115)
[2021-11-12] MEDS ORDERED: Floranex 1 GM Packet PO SCH (02:00)
[2021-11-12] MEDS: Levothyroxine Sodium 50 MCG TAB PO SCH (05:11)
[2021-11-12 06:03] LABS: #Eosinphils 0.4 thou/uL (0.0-0.7); #Lymphocytes 1.3 thou/uL (1.20-3.40); #Monocytes 0.8 thou/uL (0.11-0.59); #Neutrophils 3.9 thou/uL (1.40-6.50); %Basophils 0.1 % (0.0-1.0); %Eosinophils 5.6 % (0.0-10.0); %Lymphocytes 20.9 % (21.0-51.0); %Monocytes 12.8 % (0.0-10.0); %Neutrophils 60.5 % (42.0-75.0); Hemoglobin 7.9 g/dL (14.0-18.0); Mean Corpuscular HGB CONC 30.8 g/dL (32.0-36.0); Mean Corpuscular Hemoglobin 25.8 pg (27.0-31.0); Mean Corpuscular Volume 83.6 fL (78.0-98.0); Mean Platelet Volume 10.6 fL (7.4-10.4); Platelet Count 173 thou/uL (130-400); RBC Distribution Width 16.4 % (11.5-14.5); Red Blood Cell (RBC) Count 3.05 mill/uL (4.70-6.10); White Blood Cell (WBC) Count 6.4 thou/uL (4.8-10.8)
[2021-11-12 06:43] LABS: Anion Gap 5 mmol/L (10-20); BUN (Urea Nitrogen) 18 mg/dL (8.4-25.7); Calc. Creatinine Clearance 22 mL/min (70-130); Calcium 7.5 mg/dL (7.8-10.44); Carbon Dioxide 35 mmol/L (23-31); Chloride 101 mmol/L (98-107); Glucose 107 mg/dL (80-115); Potassium 3.6 mmol/L (3.5-5.1); Sodium 137 mmol/L (136-145)
[2021-11-12] MEDS: Heparin 5,000 UNITS/ML VIAL SC SCH ×2 (08:14→22:45)
[2021-11-12] MEDS: Metamucil PACK PO SCH (08:14)
[2021-11-12] MEDS: Tamsulosin HCl 0.4 MG CAP PO SCH (08:15)
[2021-11-12] MEDS: Carvedilol 6.25 MG TAB PO SCH ×2 (08:15→17:38)
[2021-11-12] MEDS: NIFEdipine XL 60 MG TAB PO SCH (08:15)
[2021-11-12] MEDS: cloNIDine 0.1 MG TAB PO SCH ×3 (08:15→22:44)
[2021-11-12] MEDS: Folic Acid 1 MG TAB PO SCH (08:16)
[2021-11-12] MEDS: Floranex 1 GM Packet PO SCH (10:08)
[2021-11-12] MEDS ORDERED: hydrALAZINE 25 MG TAB PO SCH (10:30)
[2021-11-12] MEDS: Atorvastatin Calcium 40 MG TAB PO SCH (22:44)
[2021-11-12] MEDS: hydrALAZINE 25 MG TAB PO SCH (22:44)
[2021-11-12] MEDS: hydrOXYzine 25 MG TAB PO SCH (22:48)
[2021-11-13 06:05] LABS: #Eosinphils 0.5 thou/uL (0.0-0.7); #Lymphocytes 1.5 thou/uL (1.20-3.40); #Monocytes 0.8 thou/uL (0.11-0.59); %Basophils 0.4 % (0.0-1.0); %Eosinophils 6.9 % (0.0-10.0); %Lymphocytes 22.5 % (21.0-51.0); %Monocytes 11.2 % (0.0-10.0); %Neutrophils 58.9 % (42.0-75.0); Hemoglobin 7.8 g/dL (14.0-18.0); Mean Corpuscular Hemoglobin 25.7 pg (27.0-31.0); Mean Corpuscular Volume 83.2 fL (78.0-98.0); Mean Platelet Volume 9.9 fL (7.4-10.4); Platelet Count 189 thou/uL (130-400); RBC Distribution Width 16.3 % (11.5-14.5); Red Blood Cell (RBC) Count 3.05 mill/uL (4.70-6.10); White Blood Cell (WBC) Count 6.8 thou/uL (4.8-10.8)
[2021-11-13 06:29] LABS: Anion Gap 13 mmol/L (10-20); BUN (Urea Nitrogen) 24 mg/dL (8.4-25.7); Calc. Creatinine Clearance 17 mL/min (70-130); Calcium 7.8 mg/dL (7.8-10.44); Carbon Dioxide 26 mmol/L (23-31); Chloride 103 mmol/L (98-107); Glucose 85 mg/dL (80-115); Potassium 3.5 mmol/L (3.5-5.1); Sodium 138 mmol/L (136-145)
[2021-11-13] MEDS: Levothyroxine Sodium 50 MCG TAB PO SCH (06:40)
[2021-11-13 08:41] LABS: HCV log10 6.279 (.); Hep C PCR-Quant 1900000 IU/mL (.)
[2021-11-13] MEDS ORDERED: Heparin 10,000 UNITS/ 10 ML VIAL ONE (09:16)
[2021-11-13] MEDS: cloNIDine 0.1 MG TAB PO SCH ×3 (14:31→21:42)
[2021-11-13] MEDS: Folic Acid 1 MG TAB PO SCH (14:31)
[2021-11-13] MEDS: Tamsulosin HCl 0.4 MG CAP PO SCH (14:32)
[2021-11-13] MEDS: hydrALAZINE 25 MG TAB PO SCH ×2 (14:32→21:44)
[2021-11-13] MEDS: Metamucil PACK PO SCH (14:32)
[2021-11-13] MEDS: Carvedilol 6.25 MG TAB PO SCH ×2 (14:32→16:33)
[2021-11-13] MEDS: NIFEdipine XL 60 MG TAB PO SCH (14:32)
[2021-11-13] MEDS: Heparin 5,000 UNITS/ML VIAL SC SCH ×2 (14:44→21:44)
[2021-11-13] MEDS: Lantus 1000 UNITS/10 ML VIAL SC SCH (14:44)
[2021-11-13] MEDS: Floranex 1 GM Packet PO SCH (14:44)
[2021-11-13 19:12] LABS: QuantiFERON-TB Gold Plus Negative (Negative)
[2021-11-13] MEDS: Atorvastatin Calcium 40 MG TAB PO SCH (21:44)
[2021-11-13] MEDS: hydrOXYzine 25 MG TAB PO SCH (21:51)
[2021-11-14 06:06] LABS: #Eosinphils 0.5 thou/uL (0.0-0.7); #Lymphocytes 1.4 thou/uL (1.20-3.40); #Monocytes 0.7 thou/uL (0.11-0.59); #Neutrophils 4.3 thou/uL (1.40-6.50); %Basophils 0.2 % (0.0-1.0); %Eosinophils 7.7 % (0.0-10.0); %Lymphocytes 20.1 % (21.0-51.0); %Monocytes 10.8 % (0.0-10.0); %Neutrophils 61.4 % (42.0-75.0); Hemoglobin 7.9 g/dL (14.0-18.0); Mean Corpuscular HGB CONC 30.8 g/dL (32.0-36.0); Mean Corpuscular Hemoglobin 25.5 pg (27.0-31.0); Mean Corpuscular Volume 82.7 fL (78.0-98.0); Mean Platelet Volume 9.9 fL (7.4-10.4); Platelet Count 206 thou/uL (130-400); RBC Distribution Width 16.5 % (11.5-14.5); White Blood Cell (WBC) Count 6.9 thou/uL (4.8-10.8)
[2021-11-14] MEDS: Levothyroxine Sodium 50 MCG TAB PO SCH (06:15)
[2021-11-14 06:22] LABS: Anion Gap 9 mmol/L (10-20); BUN (Urea Nitrogen) 13 mg/dL (8.4-25.7); Calc. Creatinine Clearance 23 mL/min (70-130); Carbon Dioxide 31 mmol/L (23-31); Chloride 103 mmol/L (98-107); Glucose 74 mg/dL (80-115); Potassium 3.7 mmol/L (3.5-5.1); Sodium 139 mmol/L (136-145)
[2021-11-14] MEDS ORDERED: NIFEdipine XL 60 MG TAB PO SCH (09:00)
[2021-11-14] MEDS ORDERED: hydrALAZINE 25 MG TAB PO SCH (09:00)
[2021-11-14] MEDS: Carvedilol 6.25 MG TAB PO SCH ×2 (09:22→15:25)
[2021-11-14] MEDS: Heparin 5,000 UNITS/ML VIAL SC SCH ×2 (09:24→21:07)
[2021-11-14] MEDS: Folic Acid 1 MG TAB PO SCH (09:24)
[2021-11-14] MEDS: cloNIDine 0.1 MG TAB PO SCH ×3 (09:24→21:06)
[2021-11-14] MEDS: NIFEdipine XL 60 MG TAB PO SCH (09:25)
[2021-11-14] MEDS: Metamucil PACK PO SCH (09:26)
[2021-11-14] MEDS: Tamsulosin HCl 0.4 MG CAP PO SCH (09:26)
[2021-11-14] MEDS: Floranex 1 GM Packet PO SCH (09:27)
[2021-11-14] MEDS: Lantus 1000 UNITS/10 ML VIAL SC SCH (09:27)
[2021-11-14] MEDS ORDERED: NIFEdipine XL 30 MG TAB PO SCH (10:15)
[2021-11-14 11:39] VITALS: BMI 21.8
[2021-11-14] MEDS: hydrOXYzine 25 MG TAB PO SCH (21:06)
[2021-11-14] MEDS: Atorvastatin Calcium 40 MG TAB PO SCH (21:06)
[2021-11-15] MEDS: Levothyroxine Sodium 50 MCG TAB PO SCH (05:06)
[2021-11-15 06:21] LABS: #Eosinphils 0.5 thou/uL (0.0-0.7); #Lymphocytes 1.2 thou/uL (1.20-3.40); #Monocytes 0.7 thou/uL (0.11-0.59); #Neutrophils 4.5 thou/uL (1.40-6.50); %Basophils 0.5 % (0.0-1.0); %Eosinophils 7.7 % (0.0-10.0); %Lymphocytes 17.5 % (21.0-51.0); %Monocytes 9.8 % (0.0-10.0); %Neutrophils 64.4 % (42.0-75.0); Hemoglobin 7.7 g/dL (14.0-18.0); Mean Corpuscular HGB CONC 30.6 g/dL (32.0-36.0); Mean Corpuscular Hemoglobin 25.3 pg (27.0-31.0); Mean Corpuscular Volume 82.6 fL (78.0-98.0); Mean Platelet Volume 9.6 fL (7.4-10.4); Platelet Count 201 thou/uL (130-400); RBC Distribution Width 16.6 % (11.5-14.5); Red Blood Cell (RBC) Count 3.03 mill/uL (4.70-6.10)
[2021-11-15 06:47] LABS: Anion Gap 11 mmol/L (10-20); BUN (Urea Nitrogen) 22 mg/dL (8.4-25.7); Calc. Creatinine Clearance 17 mL/min (70-130); Calcium 8.2 mg/dL (7.8-10.44); Carbon Dioxide 30 mmol/L (23-31); Chloride 102 mmol/L (98-107); Glucose 90 mg/dL (80-115); Potassium 3.7 mmol/L (3.5-5.1); Sodium 139 mmol/L (136-145)
[2021-11-15] MEDS ORDERED: Heparin 10,000 UNITS/ 10 ML VIAL ONE (08:31)
[2021-11-15] MEDS ORDERED: cloNIDine 0.2mg/24 Hour PATCH TD SCH ×2 (09:39→15:00)
[2021-11-15] MEDS: Carvedilol 6.25 MG TAB PO SCH ×2 (10:05→17:00)
[2021-11-15] MEDS: cloNIDine 0.1 MG TAB PO SCH ×3 (10:05→20:52)
[2021-11-15] MEDS: Heparin 5,000 UNITS/ML VIAL SC SCH ×2 (10:05→20:53)
[2021-11-15] MEDS: NIFEdipine XL 60 MG TAB PO SCH ×2 (10:06→20:52)
[2021-11-15] MEDS: Metamucil PACK PO SCH (14:30)
[2021-11-15] MEDS: Floranex 1 GM Packet PO SCH (14:30)
[2021-11-15] MEDS: Tamsulosin HCl 0.4 MG CAP PO SCH (14:30)
[2021-11-15] MEDS: Folic Acid 1 MG TAB PO SCH (14:30)
[2021-11-15] MEDS: Lantus 1000 UNITS/10 ML VIAL SC SCH ×2 (14:37→14:38)
[2021-11-15] MEDS: Atorvastatin Calcium 40 MG TAB PO SCH (20:54)
[2021-11-15] MEDS: hydrOXYzine 25 MG TAB PO SCH (23:01)
[2021-11-16] MEDS ORDERED: Labetalol HCl 100 MG/20 ML VIAL SLOW IVP PRN (04:07)
[2021-11-16] MEDS ORDERED: hydrALAZINE 20 MG/ML VIAL SLOW IVP SCH (05:00)
[2021-11-16] MEDS: Levothyroxine Sodium 50 MCG TAB PO SCH (05:01)
[2021-11-16 05:36] LABS: #Eosinphils 0.6 thou/uL (0.0-0.7); #Monocytes 0.8 thou/uL (0.11-0.59); #Neutrophils 4.8 thou/uL (1.40-6.50); %Basophils 0.5 % (0.0-1.0); %Eosinophils 8.2 % (0.0-10.0); %Lymphocytes 14.1 % (21.0-51.0); %Monocytes 10.5 % (0.0-10.0); %Neutrophils 66.6 % (42.0-75.0); Hemoglobin 7.7 g/dL (14.0-18.0); Mean Corpuscular HGB CONC 30.5 g/dL (32.0-36.0); Mean Corpuscular Hemoglobin 25.4 pg (27.0-31.0); Mean Corpuscular Volume 83.2 fL (78.0-98.0); Mean Platelet Volume 9.3 fL (7.4-10.4); Platelet Count 207 thou/uL (130-400); RBC Distribution Width 16.6 % (11.5-14.5); Red Blood Cell (RBC) Count 3.04 mill/uL (4.70-6.10); White Blood Cell (WBC) Count 7.2 thou/uL (4.8-10.8)
[2021-11-16 05:58] LABS: Anion Gap 8 mmol/L (10-20); BUN (Urea Nitrogen) 13 mg/dL (8.4-25.7); Calc. Creatinine Clearance 26 mL/min (70-130); Calcium 8.2 mg/dL (7.8-10.44); Carbon Dioxide 30 mmol/L (23-31); Chloride 103 mmol/L (98-107); Glucose 78 mg/dL (80-115); Potassium 3.6 mmol/L (3.5-5.1); Sodium 137 mmol/L (136-145)
[2021-11-16] MEDS ORDERED: hydrALAZINE 25 MG TAB PO SCH ×2 (10:00→15:00)
[2021-11-16] MEDS: Carvedilol 6.25 MG TAB PO SCH (11:19)
[2021-11-16] MEDS: cloNIDine 0.1 MG TAB PO SCH (11:19)
[2021-11-16] MEDS: Tamsulosin HCl 0.4 MG CAP PO SCH (11:19)
[2021-11-16] MEDS: Folic Acid 1 MG TAB PO SCH (11:20)
[2021-11-16] MEDS: NIFEdipine XL 60 MG TAB PO SCH (11:20)
[2021-11-16] MEDS: Metamucil PACK PO SCH (11:21)
[2021-11-16] MEDS: Heparin 5,000 UNITS/ML VIAL SC SCH (11:21)
[2021-11-16] MEDS: Floranex 1 GM Packet PO SCH (11:21)
[2021-11-16] MEDS: Lantus 1000 UNITS/10 ML VIAL SC SCH (11:38)
[2021-11-16 11:40] VITALS: TEMP 98
[2021-11-16 13:04] VITALS: BP 167/82
[2021-11-21] MEDS ORDERED: cloNIDine 0.2mg/24 Hour PATCH TD SCH (09:00)
[2021-11-22] MEDS ORDERED: cloNIDine 0.2mg/24 Hour PATCH TD SCH (15:00)
== END 2021-11-16 16:06 | disposition home or self-care (01) | DRG 640 ==
LOC: ERS 13:00 → CCU 17:21 → T4-A 11-08 10:57
PROVIDERS: ADMIT Emergency Medicine; ATTEND Emergency Medicine
PROC: 8E0ZXY6 Isolation (ICD-10-PCS; 2021-11-05)
PROC: 5A1D70Z Performance of Urinary Filtration, Intermittent, Less than 6 Hours Per Day (ICD-10-PCS; principal; 2021-11-06)
DX: E87.70 Fluid overload, unspecified (principal); J81.0 Acute pulmonary edema; E43 Unspecified severe protein-calorie malnutrition; N18.6 End stage renal disease; U07.1 COVID-19; I16.1 Hypertensive emergency; I50.32 Chronic diastolic (congestive) heart failure; I13.2 Hypertensive heart and chronic kidney disease with heart failure and with stage 5 chronic kidney disease, or end stage renal disease; R78.81 Bacteremia; K52.1 Toxic gastroenteritis and colitis; L89.151 Pressure ulcer of sacral region, stage 1; E11.22 Type 2 diabetes mellitus with diabetic chronic kidney disease; D63.1 Anemia in chronic kidney disease; N40.0 Benign prostatic hyperplasia without lower urinary tract symptoms; E03.9 Hypothyroidism, unspecified; E78.5 Hyperlipidemia, unspecified; B18.2 Chronic viral hepatitis C; R77.8 Other specified abnormalities of plasma proteins; Y95 Nosocomial condition; T36.8X5A Adverse effect of other systemic antibiotics, initial encounter; B96.1 Klebsiella pneumoniae [K. pneumoniae] as the cause of diseases classified elsewhere; Z79.899 Other long term (current) drug therapy; Z28.21 Immunization not carried out because of patient refusal; Z68.20 Body mass index [BMI] 20.0-20.9, adult; Z99.2 Dependence on renal dialysis; Z88.8 Allergy status to other drugs, medicaments and biological substances; Z79.890 Hormone replacement therapy; Z91.15 Patient's noncompliance with renal dialysis; Z91.19 Patient's noncompliance with other medical treatment and regimen; Z87.440 Personal history of urinary (tract) infections; Z91.14 Patient's other noncompliance with medication regimen
CPT/HCPCS: 36415; 36416; 71045; 71260; 74177; 80048; 80053; 82553; 84484; 85025; 86480; 86704; 86706; 86803; 87040; 87077; 87149; 87186; 87340; 87522; 90935; 93005; 96365; 96375; G0257; J1644; J1815; J2543; J3490; J7050; Q9967; U0002

== ENCOUNTER 2023-05-12 21:14 | Emergency (ER) | payer OTHER, MEDICARE ==
[2023-05-12 22:18] LABS: #Eosinphils 0.5 thou/uL (0.0-0.7); #Monocytes 0.6 thou/uL (0.11-0.59); #Neutrophils 3.9 thou/uL (1.40-6.50); %Basophils 0.3 % (0.0-1.0); %Eosinophils 8.5 % (0.0-10.0); %Lymphocytes 17.5 % (21.0-51.0); %Monocytes 9.2 % (0.0-10.0); %Neutrophils 64.3 % (42.0-75.0); Hematocrit 39.8 % (42.0-52.0); Hemoglobin 12.9 g/dL (14.0-18.0); Mean Corpuscular HGB CONC 32.4 g/dL (32.0-36.0); Mean Corpuscular Hemoglobin 28.2 pg (27.0-31.0); Mean Corpuscular Volume 87.1 fl (78.0-98.0); Mean Platelet Volume 9.7 fL (7.4-10.4); Platelet Count 174 10x3/uL (130-400); RBC Distribution Width 16.2 % (11.5-14.5); Red Blood Cell (RBC) Count 4.57 mill/uL (4.70-6.10); White Blood Cell (WBC) Count 6.1 10x3/uL (4.8-10.8)
[2023-05-12 22:43] LABS: Troponin I 0.037 ng/mL (< 0.028)
[2023-05-12] MEDS ORDERED: cloNIDine 0.1 MG TAB ONE (22:43)
[2023-05-12 22:46] LABS: ALT (SGPT) 62 U/L (8-55); AST (SGOT) 43 U/L (5-34); Albumin 3.8 g/dL (3.4-4.8); Alkaline Phosphatase 57 U/L (40-110); Anion Gap 17 mmol/L (10-20); BUN (Urea Nitrogen) 11 mg/dL (8.4-25.7); Bilirubin, Total 0.5 mg/dL (0.2-1.2); Calc. Creatinine Clearance 0 mL/min (70-130); Calcium 9.3 mg/dL (7.8-10.44); Carbon Dioxide 26 mmol/L (23-31); Chloride 96 mmol/L (98-107); Estimated GFR 15; Glucose 101 mg/dL (83-110); Potassium 3.7 mmol/L (3.5-5.1); Protein, Total 8.8 g/dL (5.8-8.1); Sodium 135 mmol/L (136-145)
== END 2023-05-12 23:48 | disposition home or self-care (01) ==
LOC: ERS 21:14
DX: I13.2 Hypertensive heart and chronic kidney disease with heart failure and with stage 5 chronic kidney disease, or end stage renal disease (principal); I50.9 Heart failure, unspecified; N18.6 End stage renal disease; E11.22 Type 2 diabetes mellitus with diabetic chronic kidney disease; E03.9 Hypothyroidism, unspecified; Z99.2 Dependence on renal dialysis
CPT/HCPCS: 36415; 71045; 80053; 83880; 84484; 85025; 93005

== ENCOUNTER 2023-07-09 11:39 | Inpatient (IN) | payer OTHER ==
[2023-07-09 13:39] LABS: #Eosinphils 0.5 thou/uL (0.0-0.7); #Monocytes 0.5 thou/uL (0.11-0.59); #Neutrophils 3.5 thou/uL (1.40-6.50); %Basophils 0.4 % (0.0-1.0); %Eosinophils 9.3 % (0.0-10.0); %Lymphocytes 15.9 % (21.0-51.0); %Monocytes 9.7 % (0.0-10.0); %Neutrophils 64.5 % (42.0-75.0); Hematocrit 27.6 % (42.0-52.0); Hemoglobin 8.7 g/dL (14.0-18.0); Mean Corpuscular HGB CONC 31.5 g/dL (32.0-36.0); Mean Corpuscular Hemoglobin 27.4 pg (27.0-31.0); Mean Corpuscular Volume 86.8 fl (78.0-98.0); Mean Platelet Volume 10.4 fL (7.4-10.4); Platelet Count 188 10x3/uL (130-400); Red Blood Cell (RBC) Count 3.18 mill/uL (4.70-6.10); White Blood Cell (WBC) Count 5.4 10x3/uL (4.8-10.8)
[2023-07-09 14:06] LABS: ALT (SGPT) 21 U/L (8-55); AST (SGOT) 13 U/L (5-34); Albumin 3.3 g/dL (3.4-4.8); Alkaline Phosphatase 58 U/L (40-110); Anion Gap 21 mmol/L (10-20); BUN (Urea Nitrogen) 105 mg/dL (8.4-25.7); Bilirubin, Total 0.4 mg/dL (0.2-1.2); Calc. Creatinine Clearance 0 mL/min (70-130); Calcium 8.6 mg/dL (7.8-10.44); Carbon Dioxide 19 mmol/L (23-31); Chloride 110 mmol/L (98-107); Estimated GFR 2; Globulin 3.7 g/dL (2.4-3.5); Glucose 73 mg/dL (83-110); Sodium 143 mmol/L (136-145)
[2023-07-09 14:17] LABS: Potassium 7.4 mmol/L (3.5-5.1)
[2023-07-09] MEDS ORDERED: Calcium Chloride 1 GM/10 ML Abboject SYRINGE ONE (14:31)
[2023-07-09] MEDS ORDERED: Insulin Regular 300 UNITS/3 ML VIAL ONE (14:31)
[2023-07-09] MEDS ORDERED: Dextrose 50% Abboject 50 ML SYRINGE ONE (14:31)
[2023-07-09] MEDS ORDERED: Sodium Bicarb 50 MEQ/50 ML VIAL ONE (14:31)
[2023-07-09] MEDS ORDERED: Calcium Carbonate 500 MG ChewTAB PO PRN (14:40)
[2023-07-09] MEDS ORDERED: Acetaminophen 325 MG TAB PO PRN (14:40)
[2023-07-09] MEDS ORDERED: Senokot S 8.6-50 MG TAB PO PRN (14:40)
[2023-07-09] MEDS ORDERED: Dextrose 50% Abboject 50 ML SYRINGE SLOW IVP PRN (15:11)
[2023-07-09] MEDS ORDERED: HumaLOG 300 UNITS/3 ML VIAL SC PRN (15:11)
[2023-07-09] MEDS ORDERED: Glucagon 1 MG/ML KIT IM PRN (15:11)
[2023-07-09] MEDS ORDERED: Dextrose 5% in Water 1,000 ML IV PRN (15:11)
[2023-07-09 15:59] LABS: HBSAB Concentration Less than 8.00 mIU/mL; HBSAg Index 0.28 S/CO (0-0.99); Hep B Core Total Ab Non-Reactive (NonReactive); Hep B Core Total Index 0.19 S/CO (0-0.79); Hep B Surf AB Non-Reactive (NonReactive); Hep B Surf Ag Non-Reactive S/CO (NonReactive)
[2023-07-09 16:19] LABS: Hep C IgG Ab Reflex HepC Qnt S/CO (NonReactive); Hep C Index 16.07 S/CO (0-0.79)
[2023-07-09] MEDS ORDERED: EPOETIN ALFA-EPBX (ESRD) 10,000 UNITS/ML VIAL IVP SCH (17:00)
[2023-07-09] MEDS: Heparin 5,000 UNITS/ML VIAL SC SCH ×2 (18:51→20:45)
[2023-07-09 19:26] LABS: Troponin I 0.029 ng/mL (< 0.028)
[2023-07-09 20:12] LABS: Anion Gap 17 mmol/L (10-20); BUN (Urea Nitrogen) 41 mg/dL (8.4-25.7); Calc. Creatinine Clearance 9 mL/min (70-130); Calcium 9.3 mg/dL (7.8-10.44); Carbon Dioxide 26 mmol/L (23-31); Chloride 102 mmol/L (98-107); Estimated GFR 6; Glucose 88 mg/dL (83-110); Potassium 3.6 mmol/L (3.5-5.1); Sodium 141 mmol/L (136-145)
[2023-07-09] MEDS: NIFEdipine XL 60 MG ER.TAB PO SCH (20:43)
[2023-07-09] MEDS: hydrALAZINE 25 MG TAB PO SCH (20:43)
[2023-07-09] MEDS: cloNIDine 0.2 MG TAB PO SCH (21:03)
[2023-07-10] MEDS ORDERED: Ibuprofen 800 MG TAB PO SCH (03:30)
[2023-07-10] MEDS ORDERED: traMADol HCl 50 MG TAB PO SCH (03:45)
[2023-07-10 04:06] LABS: #Eosinphils 0.4 thou/uL (0.0-0.7); #Monocytes 0.5 thou/uL (0.11-0.59); #Neutrophils 2.6 thou/uL (1.40-6.50); %Basophils 0.4 % (0.0-1.0); %Lymphocytes 20.9 % (21.0-51.0); %Monocytes 11.7 % (0.0-10.0); %Neutrophils 57.8 % (42.0-75.0); Hematocrit 31.7 % (42.0-52.0); Hemoglobin 10.4 g/dL (14.0-18.0); Mean Corpuscular HGB CONC 32.8 g/dL (32.0-36.0); Mean Corpuscular Hemoglobin 27.1 pg (27.0-31.0); Mean Platelet Volume 10.5 fL (7.4-10.4); Platelet Count 187 10x3/uL (130-400); RBC Distribution Width 16.6 % (11.5-14.5); Red Blood Cell (RBC) Count 3.84 mill/uL (4.70-6.10); White Blood Cell (WBC) Count 4.5 10x3/uL (4.8-10.8)
[2023-07-10 04:29] LABS: Anion Gap 17 mmol/L (10-20); BUN (Urea Nitrogen) 36 mg/dL (8.4-25.7); Calc. Creatinine Clearance 8 mL/min (70-130); Calcium 9.1 mg/dL (7.8-10.44); Carbon Dioxide 26 mmol/L (23-31); Chloride 102 mmol/L (98-107); Estimated GFR 5; Glucose 86 mg/dL (83-110); Iron 90 ug/dL (65-175); Iron Binding Capacity, Total 163 mcg/dL (261-462); Sodium 140 mmol/L (136-145)
[2023-07-10 04:35] LABS: Mean Corpuscular Volume 82.6 fl (78.0-98.0)
[2023-07-10 04:49] LABS: Ferritin 867.12 ng/mL (22-322)
[2023-07-10] MEDS: Levothyroxine Sodium 50 MCG TAB PO SCH (06:11)
[2023-07-10] MEDS: Tamsulosin HCl 0.4 MG CAP PO SCH (09:09)
[2023-07-10] MEDS: NIFEdipine XL 60 MG ER.TAB PO SCH ×2 (09:09→20:42)
[2023-07-10] MEDS: cloNIDine 0.2 MG TAB PO SCH ×2 (09:09→20:42)
[2023-07-10] MEDS: hydrALAZINE 25 MG TAB PO SCH ×3 (09:10→20:42)
[2023-07-10] MEDS: Heparin 5,000 UNITS/ML VIAL SC SCH ×3 (09:10→20:42)
[2023-07-10] MEDS: Atorvastatin Calcium 40 MG TAB PO SCH (09:10)
[2023-07-11] MEDS: Levothyroxine Sodium 50 MCG TAB PO SCH (05:31)
[2023-07-11 10:11] LABS: Anion Gap 13 mmol/L (10-20); BUN (Urea Nitrogen) 23 mg/dL (8.4-25.7); Calc. Creatinine Clearance 12 mL/min (70-130); Calcium 9.1 mg/dL (7.8-10.44); Carbon Dioxide 33 mmol/L (23-31); Chloride 97 mmol/L (98-107); Estimated GFR 9; Glucose 92 mg/dL (83-110); Potassium 3.9 mmol/L (3.5-5.1); Sodium 139 mmol/L (136-145)
[2023-07-11] MEDS ORDERED: Heparin 10,000 UNITS/ 10 ML VIAL ONE (11:03)
[2023-07-11] MEDS: Heparin 5,000 UNITS/ML VIAL SC SCH ×3 (11:33→21:34)
[2023-07-11] MEDS: NIFEdipine XL 60 MG ER.TAB PO SCH ×2 (12:10→21:32)
[2023-07-11] MEDS: Atorvastatin Calcium 40 MG TAB PO SCH (12:10)
[2023-07-11] MEDS: hydrALAZINE 25 MG TAB PO SCH ×3 (12:11→21:32)
[2023-07-11] MEDS: Tamsulosin HCl 0.4 MG CAP PO SCH (12:11)
[2023-07-11] MEDS: cloNIDine 0.2 MG TAB PO SCH ×2 (12:11→21:29)
[2023-07-11] MEDS ORDERED: OLANZapine 10 MG VIAL IM SCH (21:30)
[2023-07-11] MEDS ORDERED: Sterile Water 10 ML VIAL FS PRN (21:30)
[2023-07-12] MEDS: Levothyroxine Sodium 50 MCG TAB PO SCH (06:05)
[2023-07-12] MEDS ORDERED: FLU VACC QS2023(65UP)/MF59C/PF 60 MCG/0.5 ML SYRINGE IM ONE (09:00)
[2023-07-12] MEDS ORDERED: Senokot 8.6 MG TAB PO SCH (09:30)
[2023-07-12] MEDS: Heparin 5,000 UNITS/ML VIAL SC SCH ×3 (09:58→20:35)
[2023-07-12] MEDS: cloNIDine 0.2 MG TAB PO SCH ×2 (09:58→20:35)
[2023-07-12] MEDS: hydrALAZINE 25 MG TAB PO SCH ×3 (09:58→22:04)
[2023-07-12] MEDS: Tamsulosin HCl 0.4 MG CAP PO SCH (09:58)
[2023-07-12] MEDS: Atorvastatin Calcium 40 MG TAB PO SCH (09:59)
[2023-07-12] MEDS: NIFEdipine XL 60 MG ER.TAB PO SCH ×2 (09:59→20:36)
[2023-07-12 22:36] LABS: Hep C PCR-Quant 9130000 IU/mL (.)
[2023-07-13] MEDS: Ondansetron PF 4 MG/2 ML Vial IVP PRN (00:48)
[2023-07-13] MEDS: Senokot 8.6 MG TAB PO PRN (01:28)
[2023-07-13] MEDS: Levothyroxine Sodium 50 MCG TAB PO SCH (05:52)
[2023-07-13] MEDS: hydrALAZINE 25 MG TAB PO SCH ×3 (09:22→20:56)
[2023-07-13] MEDS: cloNIDine 0.2 MG TAB PO SCH ×2 (09:22→20:56)
[2023-07-13] MEDS: Tamsulosin HCl 0.4 MG CAP PO SCH (09:22)
[2023-07-13] MEDS: Atorvastatin Calcium 40 MG TAB PO SCH (09:22)
[2023-07-13] MEDS: Heparin 5,000 UNITS/ML VIAL SC SCH ×3 (09:22→20:56)
[2023-07-13] MEDS: NIFEdipine XL 60 MG ER.TAB PO SCH ×2 (09:22→20:56)
[2023-07-14 03:02] LABS: #Eosinphils 0.4 thou/uL (0.0-0.7); #Monocytes 0.9 thou/uL (0.11-0.59); %Basophils 0.1 % (0.0-1.0); %Eosinophils 4.1 % (0.0-10.0); %Lymphocytes 12.6 % (21.0-51.0); %Monocytes 9.8 % (0.0-10.0); Hematocrit 30.5 % (42.0-52.0); Hemoglobin 9.6 g/dL (14.0-18.0); Mean Corpuscular HGB CONC 31.5 g/dL (32.0-36.0); Mean Corpuscular Hemoglobin 27.5 pg (27.0-31.0); Mean Corpuscular Volume 87.4 fl (78.0-98.0); Mean Platelet Volume 10.6 fL (7.4-10.4); Platelet Count 173 10x3/uL (130-400); RBC Distribution Width 16.1 % (11.5-14.5); Red Blood Cell (RBC) Count 3.49 mill/uL (4.70-6.10); White Blood Cell (WBC) Count 9.6 10x3/uL (4.8-10.8)
[2023-07-14 03:30] LABS: Anion Gap 18 mmol/L (10-20); BUN (Urea Nitrogen) 42 mg/dL (8.4-25.7); Calc. Creatinine Clearance 7 mL/min (70-130); Calcium 9.2 mg/dL (7.8-10.44); Carbon Dioxide 32 mmol/L (23-31); Chloride 94 mmol/L (98-107); Estimated GFR 5; Glucose 98 mg/dL (83-110); Potassium 5.1 mmol/L (3.5-5.1); Sodium 139 mmol/L (136-145)
[2023-07-14] MEDS: Levothyroxine Sodium 50 MCG TAB PO SCH (07:03)
[2023-07-14] MEDS: Tamsulosin HCl 0.4 MG CAP PO SCH (08:14)
[2023-07-14] MEDS: NIFEdipine XL 60 MG ER.TAB PO SCH ×2 (08:14→21:14)
[2023-07-14] MEDS: Atorvastatin Calcium 40 MG TAB PO SCH (08:14)
[2023-07-14] MEDS: Heparin 5,000 UNITS/ML VIAL SC SCH ×3 (08:14→21:14)
[2023-07-14] MEDS: hydrALAZINE 25 MG TAB PO SCH ×3 (08:14→21:15)
[2023-07-14] MEDS: cloNIDine 0.2 MG TAB PO SCH ×2 (08:14→21:15)
[2023-07-14] MEDS ORDERED: Heparin 10,000 UNITS/ 10 ML VIAL ONE (08:35)
[2023-07-14] MEDS: Ondansetron PF 4 MG/2 ML Vial IVP PRN (21:14)
[2023-07-14] MEDS: Senokot 8.6 MG TAB PO PRN (21:15)
[2023-07-15] MEDS: Levothyroxine Sodium 50 MCG TAB PO SCH (05:14)
[2023-07-15 07:39] VITALS: BMI 21.0
[2023-07-15] MEDS: NIFEdipine XL 60 MG ER.TAB PO SCH ×2 (09:12→20:11)
[2023-07-15] MEDS: hydrALAZINE 25 MG TAB PO SCH ×3 (09:12→20:11)
[2023-07-15] MEDS: cloNIDine 0.2 MG TAB PO SCH ×2 (09:13→20:11)
[2023-07-15] MEDS: Senokot 8.6 MG TAB PO PRN (09:13)
[2023-07-15] MEDS: Heparin 5,000 UNITS/ML VIAL SC SCH ×3 (09:13→20:11)
[2023-07-15] MEDS: Tamsulosin HCl 0.4 MG CAP PO SCH (09:13)
[2023-07-15] MEDS: Atorvastatin Calcium 40 MG TAB PO SCH (09:13)
[2023-07-15 17:09] VITALS: BP 148/83
[2023-07-15 21:51] VITALS: TEMP 98
== END 2023-07-15 21:25 | DRG 640 ==
LOC: ERS 11:39 → IMCU/EMU 14:40
PROVIDERS: ADMIT Family Medicine; ATTEND Internal Medicine
DX: E87.5 Hyperkalemia (principal); J96.01 Acute respiratory failure with hypoxia; N18.6 End stage renal disease; I13.2 Hypertensive heart and chronic kidney disease with heart failure and with stage 5 chronic kidney disease, or end stage renal disease; J81.1 Chronic pulmonary edema; I50.32 Chronic diastolic (congestive) heart failure; Z88.8 Allergy status to other drugs, medicaments and biological substances; Z79.899 Other long term (current) drug therapy; E11.22 Type 2 diabetes mellitus with diabetic chronic kidney disease; Z99.2 Dependence on renal dialysis; E03.9 Hypothyroidism, unspecified; E78.5 Hyperlipidemia, unspecified; K21.9 Gastro-esophageal reflux disease without esophagitis; Z98.890 Other specified postprocedural states; R00.1 Bradycardia, unspecified; D63.1 Anemia in chronic kidney disease; N40.0 Benign prostatic hyperplasia without lower urinary tract symptoms; E88.09 Other disorders of plasma-protein metabolism, not elsewhere classified; E87.20 Acidosis, unspecified
CPT/HCPCS: 36415; 36416; 71045; 74018; 80048; 80053; 82728; 83540; 83550; 84443; 84484; 85025; 85046; 86704; 87522; 90935; 93005; 93306; 96374; 96375; G0257; J1644; J1815; J2405; J7611; J7999

== ENCOUNTER 2024-01-30 12:04 | Inpatient (IN) | payer MEDICARE ==
[~2024-01-30 12:04] MED LIST changes: -Heparin 10,000 UNITS/ 10 ML VIAL ONE; +Iopamidol-370 76% 500 ML MDV (1 ML CHARGE) ONE
[2024-01-30 12:46] LABS: Globulin 5.3 g/dL (2.4-3.5)
[2024-01-30 12:49] LABS: #Basophils Less than 0.03 10x3/uL (0.0-0.2); %Basophils 0.2 % (0.0-1.0); %Eosinophils 4.1 % (0.0-10.0); %Lymphocytes 10.4 % (21.0-51.0); %Monocytes 9.7 % (0.0-10.0); %Neutrophils 74.4 % (42.0-75.0); Hematocrit 30.1 % (42.0-52.0); Hemoglobin 10.1 g/dL (14.0-18.0); Mean Corpuscular HGB CONC 33.6 g/dL (32.0-36.0); Mean Corpuscular Hemoglobin 27.4 pg (27.0-31.0); Mean Corpuscular Volume 81.6 fL (78.0-98.0); Mean Platelet Volume 10.6 fL (7.4-10.4); Platelet Count 258 10x3/uL (130-400); RBC Distribution Width 19.5 % (11.5-14.5); Red Blood Cell (RBC) Count 3.69 mill/uL (4.70-6.10)
[2024-01-30 12:53] LABS: ALT (SGPT) 19 U/L (8-55); AST (SGOT) 17 U/L (5-34); Albumin 2.6 g/dL (3.4-4.8); Alkaline Phosphatase 64 U/L (40-110); Anion Gap 35 mmol/L (10-20); Bilirubin, Total 0.8 mg/dL (0.2-1.2); Calc. Creatinine Clearance 0 mL/min (70-130); Calcium 8.8 mg/dL (7.8-10.44); Carbon Dioxide 14 mmol/L (23-31); Chloride 97 mmol/L (98-107); Estimated GFR 3; Glucose 149 mg/dL (83-110); Magnesium 2.9 mg/dL (1.6-2.6); Potassium 8.3 mmol/L (3.5-5.1); Protein, Total 7.9 g/dL (5.8-8.1); Sodium 138 mmol/L (136-145)
[2024-01-30] MEDS ORDERED: CALCIUM GLUC 1 GM (50 ML) BAG ONE (12:56)
[2024-01-30 12:59] LABS: BUN (Urea Nitrogen) 128 mg/dL (8.4-25.7)
[2024-01-30] MEDS ORDERED: Dextrose 10% in Water 250 ML ONE ×2 (13:08→21:15)
[2024-01-30] MEDS ORDERED: Sodium Bicarb 50 mEq/50 ML VIAL ONE (13:08)
[2024-01-30] MEDS ORDERED: Insulin Regular 300 UNITS/3 ML VIAL ONE (13:09)
[2024-01-30] MEDS ORDERED: Albuterol 2.5 MG (3 mL) NEB ONE (13:09)
[2024-01-30 21:54] LABS: Globulin 4.8 g/dL (2.4-3.5)
[2024-01-30 21:55] LABS: #Basophils 0.03 10x3/uL (0.0-0.2); %Basophils 0.3 % (0.0-1.0); %Eosinophils 3.9 % (0.0-10.0); %Lymphocytes 8.6 % (21.0-51.0); %Monocytes 10.5 % (0.0-10.0); %Neutrophils 74.9 % (42.0-75.0); Hematocrit 28.5 % (42.0-52.0); Mean Corpuscular HGB CONC 35.1 g/dL (32.0-36.0); Mean Corpuscular Volume 76.8 fL (78.0-98.0); Mean Platelet Volume 9.7 fL (7.4-10.4); Platelet Count 232 10x3/uL (130-400); RBC Distribution Width 18.6 % (11.5-14.5); Red Blood Cell (RBC) Count 3.71 mill/uL (4.70-6.10)
[2024-01-30 21:59] LABS: INR-International Normal Ratio 1.4; PTT 34.5 sec (22.9-36.1); Prothrombin Time 16.8 sec (12.0-14.7)
[2024-01-30] MEDS ORDERED: Labetalol HCl 100 MG/20 ML VIAL ONE (22:02)
[2024-01-30 22:11] LABS: ALT (SGPT) 19 U/L (8-55); AST (SGOT) 17 U/L (5-34); Albumin 2.5 g/dL (3.4-4.8); Alkaline Phosphatase 60 U/L (40-110); Anion Gap 25 mmol/L (10-20); BUN (Urea Nitrogen) 55 mg/dL (8.4-25.7); Bilirubin, Total 0.6 mg/dL (0.2-1.2); Calc. Creatinine Clearance 0 mL/min (70-130); Carbon Dioxide 20 mmol/L (23-31); Chloride 96 mmol/L (98-107); Estimated GFR 8; Glucose 127 mg/dL (83-110); Potassium 4.4 mmol/L (3.5-5.1); Protein, Total 7.3 g/dL (5.8-8.1); Sodium 137 mmol/L (136-145)
[2024-01-30] MEDS ORDERED: Acetaminophen 325 MG TAB PO PRN (22:20)
[2024-01-30 22:26] LABS: Actual Bicarbonate (HCO3a) 22.6 mEq/L (22-28); Analyzer IN Cardio ER; Base Excess (BEa) -0.8 mEq/L (-2.0 to +3.0); CO2 Tension 32.7 mmHg (35.0-45.0); Calcium, Ionized (arterial) 1.07 mmol/L (1.12-1.30); Carboxyhemoglobin (COHb) 1.1 gm% (0.0-3.0); Hematocrit-ABG 30 % (42.0-52.0); Hemoglobin (Hb) 10.3 g/dL (14.0-18.0); O2 Tension (PaO2), arterial 88.5 mmHg (> 70.0); Potassium - ABG Lab 4.51 mmol/L (3.70-5.30); pH, Arterial 7.457 (7.35-7.45)
[2024-01-30 22:27] LABS: Puncture Site RRA
[2024-01-30 22:28] LABS: ALV-art Gradient 20.355 mmHg (0-20)
[2024-01-30] MEDS ORDERED: Dextrose 50% Abboject 50 ML SYRINGE SLOW IVP PRN (22:40)
[2024-01-30] MEDS ORDERED: Dextrose 5% in Water 1,000 ML IV PRN (22:40)
[2024-01-30] MEDS ORDERED: Glucagon 1 MG/ML KIT IM PRN (22:40)
[2024-01-30 23:05] LABS: Hep B Core Total Ab NONREACTIVE (NonReactive); Hep B Core Total Index 0.32 S/CO (0-0.79)
[2024-01-30 23:09] LABS: HBSAB Concentration Less than 8.00 mIU/mL; HBsAg Index 0.29 S/CO (0-0.99); Hep B Surf AB NONREACTIVE (NonReactive); Hep B Surf Ag NONREACTIVE S/CO (NonReactive); Hep C IgG Ab Reflex HepC Qnt S/CO (NonReactive)
[2024-01-30] MEDS ORDERED: cloNIDine 0.1 MG TAB ONE (23:59)
[2024-01-31] MEDS ORDERED: Aspirin Chewable 81 MG TAB ONE
[2024-01-31] MEDS ORDERED: hydrALAZINE 20 MG/ML VIAL ONE (01:57)
[2024-01-31] MEDS: Levothyroxine Sodium 50 MCG TAB PO SCH (06:16)
[2024-01-31] MEDS: Labetalol HCl 100 MG/20 ML VIAL SLOW IVP PRN (06:26)
[2024-01-31 06:48] LABS: #Basophils Less than 0.03 10x3/uL (0.0-0.2); %Basophils 0.2 % (0.0-1.0); %Eosinophils 6.1 % (0.0-10.0); %Lymphocytes 12.5 % (21.0-51.0); %Monocytes 13.5 % (0.0-10.0); %Neutrophils 65.5 % (42.0-75.0); Hematocrit 29.6 % (42.0-52.0); Hemoglobin 10.2 g/dL (14.0-18.0); Mean Corpuscular HGB CONC 34.5 g/dL (32.0-36.0); Mean Corpuscular Hemoglobin 27.1 pg (27.0-31.0); Mean Corpuscular Volume 78.5 fL (78.0-98.0); Mean Platelet Volume 9.6 fL (7.4-10.4); Platelet Count 252 10x3/uL (130-400); RBC Distribution Width 18.6 % (11.5-14.5); Red Blood Cell (RBC) Count 3.77 mill/uL (4.70-6.10)
[2024-01-31 07:30] LABS: BUN (Urea Nitrogen) 59 mg/dL (8.4-25.7); Calc. Creatinine Clearance 8 mL/min (70-130); Estimated GFR 6; Glucose 65 mg/dL (83-110); Magnesium 2.2 mg/dL (1.6-2.6)
[2024-01-31 07:38] LABS: Anion Gap 26 mmol/L (10-20); Carbon Dioxide 21 mmol/L (23-31); Cardiac Risk 5.5 (Less than 4.5); Chloride 95 mmol/L (98-107); Cholesterol 153 mg/dl (< 200 Desired); HDL Cholesterol 28 mg/dL (>60 Neg Risk); LDL Cholesterol, Calculated 103 mg/dL; Potassium 6.3 mmol/L (3.5-5.1); Sodium 136 mmol/L (136-145); Triglycerides 109 mg/dL (Less than 150)
[2024-01-31] MEDS: LOKELMA 10 GM PACKET PO SCH (08:23)
[2024-01-31] MEDS: hydrALAZINE 20 MG/ML VIAL SLOW IVP PRN (08:56)
[2024-01-31 10:26] LABS: Anion Gap 25 mmol/L (10-20); BUN (Urea Nitrogen) 52 mg/dL (8.4-25.7); Calc. Creatinine Clearance 9 mL/min (70-130); Calcium 8.8 mg/dL (7.8-10.44); Carbon Dioxide 22 mmol/L (23-31); Chloride 95 mmol/L (98-107); Estimated GFR 7; Glucose 88 mg/dL (83-110); Potassium 5.5 mmol/L (3.5-5.1); Sodium 136 mmol/L (136-145)
[2024-01-31] MEDS: Ondansetron PF 4 MG/2 ML Vial IVP PRN (11:20)
[2024-01-31] MEDS: Atorvastatin Calcium 40 MG TAB PO SCH (13:36)
[2024-01-31] MEDS: Tamsulosin HCl 0.4 MG CAP PO SCH (13:37)
[2024-01-31] MEDS: Aspirin 81 mg Enteric Coated Tablet PO SCH (13:37)
[2024-01-31] MEDS ORDERED: ALPRAZolam 0.5 MG TAB PO PRN (14:02)
[2024-01-31] MEDS: Transdermal Patch Removal TOP SCH (15:50)
[2024-01-31] MEDS: Lidocaine 4% Patch TD SCH (15:50)
[2024-01-31] MEDS: hydrALAZINE 25 MG TAB PO SCH (16:51)
[2024-01-31] MEDS ORDERED: Atorvastatin Calcium 40 MG TAB PO SCH (21:00)
[2024-01-31] MEDS: cloNIDine 0.2 MG TAB PO SCH (21:24)
[2024-01-31] MEDS: NIFEdipine XL 60 MG ER.TAB PO SCH (21:24)
[2024-01-31] MEDS: Zolpidem Tartrate 5 MG TAB PO SCH (21:24)
[2024-02-01 05:58] LABS: #Basophils Less than 0.03 10x3/uL (0.0-0.2); %Basophils 0.2 % (0.0-1.0); %Eosinophils 0.3 % (0.0-10.0); %Lymphocytes 7.2 % (21.0-51.0); %Monocytes 8.7 % (0.0-10.0); %Neutrophils 82.4 % (42.0-75.0); Hematocrit 36.7 % (42.0-52.0); Hemoglobin 12.4 g/dL (14.0-18.0); Mean Corpuscular HGB CONC 33.8 g/dL (32.0-36.0); Mean Corpuscular Hemoglobin 27.2 pg (27.0-31.0); Mean Corpuscular Volume 80.5 fL (78.0-98.0); Mean Platelet Volume 9.4 fL (7.4-10.4); Platelet Count 305 10x3/uL (130-400); RBC Distribution Width 18.6 % (11.5-14.5); Red Blood Cell (RBC) Count 4.56 mill/uL (4.70-6.10)
[2024-02-01 06:30] LABS: Anion Gap 27 mmol/L (10-20); BUN (Urea Nitrogen) 35 mg/dL (8.4-25.7); Calc. Creatinine Clearance 10 mL/min (70-130); Calcium 10.1 mg/dL (7.8-10.44); Carbon Dioxide 22 mmol/L (23-31); Chloride 93 mmol/L (98-107); Estimated GFR 9; Glucose 119 mg/dL (83-110); Magnesium 2.3 mg/dL (1.6-2.6); Potassium 5.3 mmol/L (3.5-5.1); Sodium 137 mmol/L (136-145)
[2024-02-02 09:07] LABS: Anion Gap 27 mmol/L (10-20); BUN (Urea Nitrogen) 54 mg/dL (8.4-25.7); Calc. Creatinine Clearance 8 mL/min (70-130); Carbon Dioxide 22 mmol/L (23-31); Chloride 90 mmol/L (98-107); Estimated GFR 6; Glucose 103 mg/dL (83-110); Magnesium 2.4 mg/dL (1.6-2.6); Potassium 5.8 mmol/L (3.5-5.1); Sodium 133 mmol/L (136-145)
[2024-02-02 09:51] LABS: #Basophils 0.03 10x3/uL (0.0-0.2); %Basophils 0.2 % (0.0-1.0); %Lymphocytes 8.4 % (21.0-51.0); %Monocytes 11.4 % (0.0-10.0); %Neutrophils 77.9 % (42.0-75.0); Hematocrit 35.3 % (42.0-52.0); Hemoglobin 11.7 g/dL (14.0-18.0); Mean Corpuscular HGB CONC 33.1 g/dL (32.0-36.0); Mean Corpuscular Hemoglobin 27.5 pg (27.0-31.0); Mean Corpuscular Volume 83.1 fL (78.0-98.0); Mean Platelet Volume 9.7 fL (7.4-10.4); Platelet Count 354 10x3/uL (130-400); RBC Distribution Width 18.6 % (11.5-14.5); Red Blood Cell (RBC) Count 4.25 mill/uL (4.70-6.10)
[2024-02-02 11:23] VITALS: TEMP 97.1
[2024-02-02 15:35] VITALS: BP 121/74
[2024-02-04] MEDS ORDERED: Heparin 10,000 UNITS/ 10 ML VIAL ONE (08:29)
== END 2024-02-02 17:00 | disposition home or self-care (01) | DRG 640 ==
LOC: ERS 12:04 → 2NO 22:20 → OBSVTOIN 01-31 09:24
PROVIDERS: ADMIT Internal Medicine; ATTEND Hospitalist
PROC: 5A1D70Z Performance of Urinary Filtration, Intermittent, Less than 6 Hours Per Day (ICD-10-PCS; principal; 2024-01-31)
DX: E87.5 Hyperkalemia (principal); N18.6 End stage renal disease; I13.2 Hypertensive heart and chronic kidney disease with heart failure and with stage 5 chronic kidney disease, or end stage renal disease; N17.9 Acute kidney failure, unspecified; I50.32 Chronic diastolic (congestive) heart failure; E11.22 Type 2 diabetes mellitus with diabetic chronic kidney disease; E03.9 Hypothyroidism, unspecified; D63.1 Anemia in chronic kidney disease; F41.9 Anxiety disorder, unspecified; E78.5 Hyperlipidemia, unspecified; E87.20 Acidosis, unspecified; I65.21 Occlusion and stenosis of right carotid artery; I16.0 Hypertensive urgency; M54.16 Radiculopathy, lumbar region; Z79.899 Other long term (current) drug therapy; Z99.2 Dependence on renal dialysis
CPT/HCPCS: 36415; 36416; 36600; 70450; 70496; 70498; 70551; 72148; 80048; 80053; 80061; 82805; 83036; 83735; 85025; 85610; 85730; 86704; 86706; 86803; 87340; 93005; 93010; 93306; 96374; 96375; 96376; G0378; J0360; J0613; J1815; J2405; J7611; Q9967